=== PATIENT | male | born 1995 | race African-American/Black ===

== ENCOUNTER 2019-04-08 16:49 | Emergency (ER) | payer SELFPAY ==
[~2019-04-08] VITALS: Ht 180 cm; Wt 73.0 kg
[2019-04-08 17:37] LABS: BILIRUBIN,URINE NEGATIVE (NEGATIVE); CLARITY,URINE CLEAR; COLOR,URINE YELLOW; GLUCOSE, URINE (UA) NEGATIVE (NEGATIVE); KETONES,URINE NEGATIVE (NEGATIVE); LEUKOCYTE ESTERASE ,URINE NEGATIVE (NEGATIVE); NITRITE,URINE NEGATIVE (NEGATIVE); PH,URINE 8.5 (5-9); PROTEIN,URINE NEGATIVE (NEGATIVE)
[2019-04-08 17:45] LABS: RBC,URINE RARE /HPF; WBC,URINE RARE /HPF
[2019-04-08 17:46] LABS: BACTERIA,URINE NEGATIVE /HPF
--- NOTE | 2019-04-08 17:53 | ED GU-Male ---
General Chief Complaint: Abdominal/GI Problems Stated Complaint: PAIN IN ABD Nursing Triage Note: ABD PAIN, STARTED AT 1330 RATES 10/05 Source: patient Exam Limitations: no limitations History of Present Illness Date Seen by Provider: Apr 08, 2019 Time Seen by Provider: 17:40 Initial Comments Patient presents to ER by private conveyance with his family and chief complaint of right testicular pain radiating up into his right groin. Worse with movement. He noticed it first around 1:30 this afternoon when he got up for sleeping and did not do anything strenuous. He denies fevers, chills, nausea, vomiting or sweats. No history of STI. He said he had testing about a year ago that was negative. He is not having any discharge but he is having some painful urination. No history of kidney stones or abdominal surgeries. Allergies and Home Medications Allergies Coded Allergies: acetaminophen (Verified Allergy, Unknown, 04/08/19) Home Medications No Active Prescriptions or Reported Meds Patient Home Medication List Home Medication List Reviewed: Yes Review of Systems Review of Systems Constitutional: No chills, No fever, No malaise EENTM: No ear discharge, No ear pain Respiratory: No cough, No short of breath Cardiovascular: No chest pain, No edema Gastrointestinal: No abdominal pain, No constipation, No diarrhea, No nausea, No vomiting Genitourinary: burning; denies discharge; dysuria; denies frequency Musculoskeletal: No back pain, No gout, No joint pain Skin: No pruritus, No rash Psychiatric/Neurological: Denies Headache, Denies Numbness Past Gcubitl-Qkngrc-Echzto Hx Patient Social History Alcohol Use: Regular Use Number of Drinks Today: 0 Recreational Drug Use: Yes (POT) Smoking Status: Current Someday Smoker Type Used: Cigarettes Recent Foreign Travel: No Contact w/Someone Who Travel: No Recent Infectious Disease Expo: No Physical Exam Vital Signs Vital Signs - First Documented 04/08/19 04/08/19 16:58 18:51 Temp 36.9 Pulse 95 Resp 18 B/P (MAP) 104/67 (79) Pulse Ox 96 O2 Delivery Room Air Capillary Refill : Less Than 3 Seconds Height, Weight, BMI Height: '" Weight: lbs. oz. kg; 22.00 BMI Method: General Appearance: WD/WN, no apparent distress HEENT: PERRL/EOMI, pharynx normal Cardiovascular: normal peripheral pulses, regular rate, rhythm Respiratory: no respiratory distress, no accessory muscle use Gastrointestinal: normal bowel sounds, non tender, soft, no organomegaly Male: normal genitalia, inguinal tenderness (right side without contents palpab le in the canal on Valsalva maneuver. Negative for discharge from the urethra. No swelling or tumor palpable 1 test use.), testicular tenderness (right) Extremities: non-tender, normal inspection Neurologic/Psychiatric: alert, normal mood/affect, oriented x 3 Skin: normal color, warm/dry Progress/Results/Core Measures Suspected Sepsis Recent Fever Within 48 Hours: No Infection Criteria Present: None New/Unexplained Altered Menta: No Sepsis Screen: No Definite Risk SIRS Temperature: Pulse: 95 Respiratory Rate: 18 Laboratory Tests 04/08/19 17:35: White Blood Count 6.7 Blood Pressure 104 /67 Mean: 79 Laboratory Tests 04/08/19 17:35: Creatinine 1.03, Platelet Count 314, Total Bilirubin 0.8 Results/Orders Lab Results Laboratory Tests Test 04/08/19 17:25 04/08/19 17:35 Range/Units Urine Color YELLOW Urine Clarity CLEAR Urine pH 8.5 5-9 Urine Specific Davin 1.020 1.016-1.022 Urine Protein NEGATIVE NEGATIVE Urine Glucose (UA) NEGATIVE NEGATIVE Urine Ketones NEGATIVE NEGATIVE Urine Nitrite NEGATIVE NEGATIVE Urine Bilirubin NEGATIVE NEGATIVE Urine Urobilinogen 0.2 < = 1.0 MG/DL Urine Leukocyte Esterase NEGATIVE NEGATIVE Urine RBC (Auto) NEGATIVE NEGATIVE Urine RBC RARE /HPF Urine WBC RARE /HPF Urine Crystals NONE /LPF Urine Bacteria NEGATIVE /HPF Urine Casts NONE /LPF Urine Mucus NEGATIVE /LPF Urine Culture Indicated NO White Blood Count 6.7 4.3-11.0 10^3/uL Red Blood Count 4.96 4.35-5.85 10^6/uL Hemoglobin 14.7 13.3-17.7 G/DL Hematocrit 45 40-54 % Mean Corpuscular Volume 91 80-99 FL Mean Corpuscular Hemoglobin 30 25-34 PG Mean Corpuscular Hemoglobin Concent 33 32-36 G/DL Red Cell Distribution Width 13.2 10.0-14.5 % Platelet Count 314 130-400 10^3/uL Mean Platelet Volume 9.4 7.4-10.4 FL Neutrophils (%) (Auto) 73 42-75 % Lymphocytes (%) (Auto) 18 12-44 % Monocytes (%) (Auto) 8 0-12 % Eosinophils (%) (Auto) 1 0-10 % Basophils (%) (Auto) 0 0-10 % Neutrophils # (Auto) 4.9 1.8-7.8 X 10^3 Lymphocytes # (Auto) 1.2 1.0-4.0 X 10^3 Monocytes # (Auto) 0.5 0.0-1.0 X 10^3 Eosinophils # (Auto) 0.0 0.0-0.3 10^3/uL Basophils # (Auto) 0.0 0.0-0.1 10^3/uL Sodium Level 137 135-145 MMOL/L Potassium Level 3.6 3.6-5.0 MMOL/L Chloride Level 102 98-107 MMOL/L Carbon Dioxide Level 27 21-32 MMOL/L Anion Gap 8 5-14 MMOL/L Blood Urea Nitrogen 16 7-18 MG/DL Creatinine 1.03 0.60-1.30 MG/DL Estimat Glomerular Filtration Rate > 60 BUN/Creatinine Ratio 16 Glucose Level 100 70-105 MG/DL Calcium Level 9.9 8.5-10.1 MG/DL Corrected Calcium 8.5-10.1 MG/DL Total Bilirubin 0.8 0.1-1.0 MG/DL Aspartate Amino Transf (AST/SGOT) 23 5-34 U/L Alanine Aminotransferase (ALT/SGPT) 17 0-55 U/L Alkaline Phosphatase 56 40-136 U/L C-Reactive Protein High Sensitivity 0.03 0.00-0.50 MG/DL Total Protein 8.5 H 6.4-8.2 GM/DL Albumin 4.7 H 3.2-4.5 GM/DL My Orders Orders - WILIAM CERVANTES Ua Culture If Indicated (04/08/19 16:53) Cbc With Automated Diff (04/08/19 17:51) Comprehensive Metabolic Panel (04/08/19 17:51) Hs C Reactive Protein (04/08/19 17:51) Neis Musa Dna Urine Test (04/08/19 17:53) Chlamydia Trachomatis Urine (04/08/19 17:53) Azithromycin Tablet (Zithromax Tablet) (04/08/19 18:00) Ceftriaxone For Im Use (Rocephin For Im (04/08/19 18:00) Lidocaine 1% Inj 20 Ml (Xylocaine 1% Inj (04/08/19 18:00) Ketorolac Injection (Toradol Injection) (04/08/19 18:15) Ed Iv/Invasive Line Start (04/08/19 18:01) Ceftriaxone For Iv Use (Rocephin For I (04/08/19 18:30) Medications Given in ED Current Medications Medications Dose Ordered Sig/Naga Route Start Time Stop Time Status Last Admin Dose Admin Ceftriaxone Sodium 1000 mg/ Sterile Water 10 ml @ 200 mls/hr ONCE ONCE IV 04/08/19 18:30 04/08/19 18:32 DC 04/08/19 18:29 200 MLS/HR Vital Signs/I&O 04/08/19 04/08/19 16:58 18:51 Temp 36.9 36.9 Pulse 95 95 Resp 18 18 B/P (MAP) 104/67 (79) 104/67 (79) Pulse Ox 96 96 O2 Delivery Room Air Capillary Refill : Less Than 3 Seconds Blood Pressure Mean: 79 Progress Note : Time: 18:07 Progress Note Ultrasound is not available at this time. We will give him 250 mg Rocephin IM and azithromycin 1 g to treat perspective orchitis/epididymitis. We will arrange ER to ER transfer for ultrasound. [facility] has declined to take the patient has they are on MedSurg diversion and would not have a place to disposition the patient should he need to be admitted. Left a voicemail with Derek. [facility] does not have ultrasound available. 1830: Derek called back. Departure Impression Primary Impression: Testicular pain, right Disposition: XF [facility] (ER to ER) Condition: Stable Transfer Transfer Reason: Exceeds level of care (US unavailable in timely fasion) Time Spoke to Accepting Phy: 18:15 Transfer Progress Notes Derek ED: Dr. Gomez accept the patient for ER to ER transfer. Transfer Time: 18:30 Transfer Facility: [place], [place]. Method of Transfer: Private Vehicle Departure-Patient Inst. Referrals: NO,LOCAL PHYSICIAN (PCP) Primary Care Physician Scripts No Active Prescriptions or Reported Meds WILIAM CERVANTES Apr 08, 2019 17:53
[2019-04-08 17:59] LABS: BASOPHILS % (AUTO) 0 % (0-10); EOSINOPHILS % (AUTO) 1 % (0-10); HEMATOCRIT 45 % (40-54); HEMOGLOBIN 14.7 G/DL (13.3-17.7); LYMPHOCYTES # (AUTO) 1.2 X 10^3 (1.0-4.0); LYMPHOCYTES % (AUTO) 18 % (12-44); MEAN CORPUSCULAR HEMOGLOBIN 30 PG (25-34); MEAN CORPUSCULAR HGB CONC 33 G/DL (32-36); MEAN CORPUSCULAR VOLUME 91 FL (80-99); MEAN PLATELET VOLUME 9.4 FL (7.4-10.4); MONOCYTES # (AUTO) 0.5 X 10^3 (0.0-1.0); MONOCYTES % (AUTO) 8 % (0-12); NEUTROPHILS # (AUTO) 4.9 X 10^3 (1.8-7.8); NEUTROPHILS % (AUTO) 73 % (42-75); PLATELET COUNT 314 10^3/uL (130-400); RED CELL DISTRIBUTION WIDTH 13.2 % (10.0-14.5); WHITE BLOOD COUNT 6.7 10^3/uL (4.3-11.0)
[2019-04-08] MEDS ORDERED: cefTRIAXone 250 MG/ML vial (IM ONLY) IM ONE (18:00)
[2019-04-08] MEDS ORDERED: LIDOCAINE 1% INJ 20 ML 20 ML VIAL INJ ONE (18:00)
[2019-04-08] MEDS ORDERED: AZITHROMYCIN 250 MG TAB (ZITHROMAX) PO ONE (18:00)
[2019-04-08 18:12] LABS: ALANINE AMINOTRANSFERASE 17 U/L (0-55); ALBUMIN 4.7 GM/DL (3.2-4.5); ALKALINE PHOSPHATASE 56 U/L (40-136); BILIRUBIN,TOTAL 0.8 MG/DL (0.1-1.0); BUN/CREATININE RATIO 16; CALCIUM 9.9 MG/DL (8.5-10.1); CARBON DIOXIDE 27 MMOL/L (21-32); CHLORIDE 102 MMOL/L (98-107); CREATININE SERUM 1.03 MG/DL (0.60-1.30); GFR ESTIMATED > 60; GLUCOSE 100 MG/DL (70-105); POTASSIUM 3.6 MMOL/L (3.6-5.0); SODIUM 137 MMOL/L (135-145); TOTAL PROTEIN 8.5 GM/DL (6.4-8.2)
[2019-04-08] MEDS ORDERED: KETOROLAC 30 MG/ML VIAL IVP ONE (18:15)
[2019-04-08] MEDS ORDERED: cefTRIAXone FOR IV USE 1,000 MG in WATER (STERILE) FOR INJECTION 10 ML IV ONE (18:30)
[2019-04-08 18:51] VITALS: BP 104/67
--- OUTSIDE RECORDS SUMMARY | 2019-04-18 14:28 | XMS REPORT ---
Author Author Manan Terry [facility] o[facility] Address [address] [place], [place] [address] Care Team Providers Care Biomedical Photographer Name Role Phone Margaux Terry PCP Margaux Terry PreferredProvider Allergies and Adverse Reactions Name Reaction Notes Tylenol cranberries anaphylaxis Plan of Treatment Planned Activity Comments Planned Date Planned Time Plan/Goal CBC With Auto Differential 03/28/2017 12:00 AM CBC With Auto Differential 02/11/2018 12:00 AM CRP 02/11/2018 12:00 AM Medications Active Name Start Date Estimated Completion Date SIG Co mments lamotrigine 150 mg oral tablet 02/11/2018 t leatha 1 tablet by mouth daily x7, then 2 tablets daily x7, then 3 tablets daily x7, then 4 tablets daily Name Start Date Expiration Date SIG Comments Medrol (Taco) 4 mg oral tablets,dose pack 09/15/2014 take as directed Anusol-HC 25 mg rectal suppository insert 1 suppository (25 mg) by rectal route 2 times per day Suprep Bowel Prep Kit 17.5-3.13-1.6 gram oral recon soln 017 take as directed Discontinued Name Start Date Discontinued Date SIG Comments Medrol (Taco) 4 mg oral tablets,dose pack 08/06/2014 09/15/2014 take as directed tramadol oral 03/16/2016 EpiPen 2-Taco 0.3 mg/0.3 mL injection auto-injector 03/16/2016 03/27/2017 inject 0.3 milliliter (0.3 mg) by intramuscular route once as needed for anaphylaxis EpiPen 2-Taco 0.3 mg/0.3 mL injection auto-injector 03/16/2016 03/27/2017 inject 0.3 milliliter (0.3 mg) by intramuscular route once as needed for anaphylaxis naproxen 500 mg oral tablet,delayed release (DR/EC) 03/27/2017 take 1 tablet (500 mg) by oral route 2 times per day with food ferrous sulfate 325 mg (65 mg iron) oral tablet 03/27/2017 take 1 tablet (325 mg) by oral route once daily Lamictal 25 mg oral tablet 03/01/2017 03/27/2017 take 1 tablet by mouth daily x7 days, then 2 tablets daily x7 days, then 3 tablets daily x7 days then 4 tablets daily Problem List Description Status Onset Iron deficiency anemia Active 12/19/2016 Constipation Active 12/19/2016 Rectal bleeding Active 12/19/2016 Change in bowel habit Active 12/19/2016 Vital Signs Date Time BP-Sys(mm[Hg] BP-Melanie(mm[Hg]) HR(bpm) RR(rpm) Temp WT HT HC BMI BSA BMI Percentile O2 Sat(%) 02/11/2018 3:19:00 PM 122 mmHg 62 mmHg 87 bpm 18 rpm 99.3 F 145 lbs 71.5 i n 19.9413 kg/m 1.8215 m 98 % 03/27/2017 11:28:00 AM 128 mmHg 76 mmHg 60 bpm 20 rpm 98 F 147 lbs 71.5 in 20.22 kg/m2 1.83 m2 100 % 03/01/2017 10:57:00 AM 121 mmHg 71 mmHg 62 bpm 18 rpm 97.6 F 149 lbs 71.5 in 20.4914 kg/m 1.8465 m 100 % 12/19/2016 10:00:00 AM 117 mmHg 64 mmHg 64 bpm 18 rpm 97.8 F 146 lbs 71.5 in 20.08 kg/m2 1.83 m2 12/06/2016 9:27:00 AM 128 mmHg 68 mmHg 60 bpm 18 rpm 97.3 F 148 lbs 71 in 20.64 kg/m2 1.83 m2 98 % 07/10/2016 2:58:00 PM 110 mmHg 60 mmHg 83 bpm 16 rpm 97 F 148 lbs 71 in 20.6416 kg/m 1.8338 m 97 % 03/16/2016 2:08:00 PM 122 mmHg 60 mmHg 96 bpm 18 rpm 97.3 F 150 lbs 71 in 20.92 kg/m2 1.85 m2 99 % 01/13/2016 9:10:00 AM 124 mmHg 62 mmHg 60 bpm 18 rpm 96 F 143 lbs 71 in 19.9442 kg/m 1.8026 m 99 % 12/08/2014 2:38:00 PM 100 mmHg 50 mmHg 68 bpm 18 rpm 97.9 F 155 lbs 71 in 21.62 kg/m2 1.88 m2 96 % 09/15/2014 10:59:00 AM 64 bpm 18 rpm 97.9 F 155.6 lbs 71 in 21.7016 kg/m 1.8803 m 100 % 08/06/2014 1:24:00 PM 115 mmHg 58 mmHg 83 bpm 18 rpm 98.3 F 157.4 lbs 71 in 21.95 kg/m2 1.89 m2 98 % 09/08/2013 4:10:00 PM 100 mmHg 76 mmHg 73 bpm 18 rpm 99.3 F 162 lbs 71 in 22.5942 kg/m 1.9186 m 0 % 97 % Social History Name Description Comments Tobacco Light tobacco smoker Caffeine Light Alcohol Never History of Procedures Date Ordered Description Order Status 03/16/2016 12:00 AM ALLERGEN SPECIFIC IGE Reviewed 07/10/2016 12:00 AM Decadron 4mg Injection Reviewed 07/10/2016 12:00 AM Depo-Medrol 40mg Injection Reviewed 12/06/2016 12:00 AM COMPLETE CBC W/AUTO DIFF WBC Reviewed 12/06/2016 12:00 AM RADEX ABDOMEN COMPL W/DCBTS&/ERC VIEWS R eviewed 12/06/2016 12:00 AM C-REACTIVE PROTEIN Reviewed 12/06/2016 12:00 AM COMPREHEN METABOLIC PANEL Reviewed 09/08/2013 12:00 AM CHEST X-RAY 2VW FRONTAL&LATL Reviewed 09/08/2013 12:00 AM ELECTROCARDIOGRAM COMPLETE Reviewed 09/08/2013 12:00 AM ELECTROCARDIOGRAM TRACING Reviewed 09/08/2013 12:00 AM ELECTROCARDIOGRAM REPORT Reviewed 09/08/2013 12:00 AM BREATHING CAPACITY TEST Reviewed Results Summary Date and Description Results 12/13/2016 7:52 PM C REACTIVE PROTEIN <0.5 mg/L GLUCOSE 94.0 mg/dLSODIUM 140.0 mmol/LPOTASSIUM 3.80 mmol/LCHLORIDE 105.0 mmol/LCO2 26.0 mmol/LBUN 18.0 mg/dLCREATININE 0.90 mg/dLSGOT/AST 25.0 IU/LSGPT/ALT 11.0 IU/LALK PHOS 50.0 IU/LTOTAL PROTEIN 7.60 g/dLALBUMIN 4.20 g/dLTOTAL BILI 0.90 mg/dLCALCIUM 9.90 mg/dLAGE 21 GFR NonAA 105 GFR AA 127 eGFR >60 mL/min/1.73meGFR AA* >60 WBC 3.8 RBC 4.29 HGB 12.80 g/dLHCT 39.40 %MCV 92.0 fLMCH 29.80 pgMCHC 32.50 g/dLRDW SD 42 RDW CV 12.50 %MPV 8.70 fLPLT 256 NRBC# 0.00 NRBC% 0.0 %NEUT 24.0 %%LYMP 59.50 %%MONO 14.70 %%EOS 1.30 %%BASO 0.50 %#NEUT 0.90 #LYMP 2.23 #MONO 0.55 #EOS 0.05 #BASO 0.02 MANUAL DIFF NOT IND History Of Immunizations Not available. History of Past Illness Name Date of Onset Comments Iron deficiency anemia Anxiety Iron deficiency anemia 12/19/2016 Constipation 12/19/2016 Rectal bleeding 12/19/2016 Change in bowel habit 12/19/2016 Chest wall pain Sep 08 2013 4:12PM Wheezing Sep 08 2013 4:12PM Contact Dermatitis Aug 06 2014 1:26PM Contact Dermatitis Sep 15 2014 11:01AM Fatigue Dec 08 2014 2:40PM Encounter for occupational health examination Jan 13 2016 9 :12AM Allergic reaction, initial encounter Mar 16 2016 2:10PM Allergic rhinitis, unspecified allergic rhinitis trigger, unspecified rhinitis seasonality Jul 10 2016 2:59PM Left lower quadrant pain Dec 06 2016 9:29AM Rectal bleeding Dec 19 2016 12:02PM Iron deficiency anemia Dec 19 2016 12:02PM Rectal pain Dec 19 2016 12:02PM Change in bowel habit Dec 19 2016 12:02PM Constipation Dec 19 2016 12:02PM Iron deficiency anemia Jan 03 2017 9:05AM Mood disorder Mar 01 2017 10:59AM Mood disorder Mar 27 2017 11:30AM Other obsessive-compulsive disorders Mar 27 2017 11:30AM Leukopenia, unspecified type Mar 27 2017 11:30AM Bitten by dog, initial encounter Feb 11 2018 3:21PM Fever Feb 11 2018 3:21PM Mood disorder Feb 11 2018 3:21PM Anxiety Feb 11 2018 3:21PM Payers Insurance Name Company Name Plan Name Plan Number Policy Number Sin cy Group Number Start Date [facility] [id number] N/A [facility] Med Occupational Medicine [id number] N/A [id number] N/ A [employer] [id number] N/A History of Encounters Visit Date Visit Type Provider 02/11/2018 Office visit Margaux Terry LOOM FIXER HELPER 03/27/2017 Office visit Margaux Terry LOOM FIXER HELPER 03/01/2017 Office visit Margaux Terry APRN 12/25/2016 Surgery Alexey Crespo DO 12/19/2016 Office visit Alexey Crespo DO 12/06/2016 Office visit Margaux Terry APRN 10/27/2016 Hospital Cam Warner MD 07/10/2016 Office visit Keith Forbes APR N 03/16/2016 Office visit Margaux Terry APRN 01/13/2016 Office visit Margaux Terry APRN 12/08/2014 Office visit Skyler Meyers MD 09/15/2014 Office visit Afua NEVILLE RN 08/06/2014 Office visit Afua NEVILLE RN 09/08/2013 Hospital Cam Warner MD 09/08/2013 Office visit Afua NEVILLE RN
--- OUTSIDE RECORDS SUMMARY | 2019-04-18 14:28 | XMS REPORT | CCD ---
Author Author CARLOS CANSECO Organization Unknown Address [address] [place] [address] Care Team Providers Care Accounts Payable Clerk Name Role Phone VISH FARFAN, GLORIA Kenney Attphys Allergies Allergy Code Allergy Type Reaction Status ACETAMINOPHEN 161 Drug allergy Ac tive Active Medications Unknown or Not Available. Problems Unknown or Not Available. Procedures Procedure Code Procedure Type Date ^UA AUTO DIPSTICK ONLY 694034864 SNOMED CT 06/2016 ^CBC W/AUTO DIFF [id number] SNOMED CT 7 UA ROUTINE C&S IF IND [id number] SNOMED CT 06/2016 CBC W/ AUTO DIFF (RFLX MAN DIFF IF IND) [id number] SN OMED CT 11/30/2016 Results CBC W/ AUTO DIFF (RFLX MAN DIFF IF IND) - Collect Date/Time: 11/30/2016 11:15 Test Name Code Test Result Test Units Yoly t Ref Range WBC 14405-8 3.7 TH/CMM L=4.5 H=1 0.8 RBC 789-8 4.10 ML/CMM L=4.70 H=6. 10 HGB 718-7 12.3 G/DL L=14.0 H=18 .0 HCT 4544-3 36.7 % L=42.0 H=52 .0 MCV 90 FL L=81 H=99 MCH 30.0 PG L=27.0 H=33 .0 MCHC 33.5 G/DL L=31.0 H=36 .0 RDW SD 40 FL L=36 H=50 RDW CV 12.2 % L=0.0 H=14 .8 MPV 8.7 FL L=9.3 H=12 .5 PLT 777-3 245 TH/CMM L=130 H=44 0 NRBC# 0.00 TH/CMM L=0.00 H=0. 00 NRBC% 0.0 /100WBC L=0.0 H=2 .0 %NEUT 44.2 % %LYMP 44.6 % %MONO 10.3 % %EOS 0.3 % %BASO 0.3 % #NEUT 1.64 TH/CMM L=2.10 H=8. 20 #LYMP 1.65 TH/CMM L=0.90 H=5. 20 #MONO 0.38 TH/CMM L=0.16 H=1. 00 #EOS 0.01 TH/CMM L=0.00 H=0. 80 #BASO 0.01 TH/CMM L=0.00 H=0. 20 MANUAL DIFF NOT IND N/A UA ROUTINE C&S IF IND - Collect Date/Rachid e: 11/30/2016 11:15 Test Name Code Test Result Test Units Yoly t Ref Range COLOR YELLOW N/A NL: YELLOW APPEARANCE CLEAR N/A NL: CLEAR SPEC GRAV 1.010 N/A NL: 1.002 - 1.022 pH 8.5 N/A NL: 5 - 9 PROTEIN NEGATIVE N/A NL: NEGATIVE mg/dl GLUCOSE NEGATIVE N/A NL: NEGATIVE mg/dl KETONE 15 N/A NL: NEGATIVE m g/dl BILIRUBIN NEGATIVE N/A NL: NEGATI VE BLOOD NEGATIVE N/A NL: NEGATIVE NITRITE NEGATIVE N/A NL: NEGATIVE LEUK SCREEN NEGATIVE N/A NL: NEGA TIVE MICRO INDICATED? NOT INDICATED N/A Function Status Unknown or Not Available. History of Immunizations Immunization Code Date DTP 06/02/1997 OPV 06/02/1997 MMR 06/02/1997 Hep B, adolescent or pediatric 08 Hep B, adolescent or pediatric 08 Hep B, adolescent or pediatric 08 influenza, split (incl. purified surface antigen) 15 12/18/2007 Tdap 115 07/23/2007 Plan of Treatment Unknown or Not Available. Social History Smoking Status Code Start Date End Date Current some day smoker [id number] Vital Signs Unknown or Not Available. Function Status Unknown or Not Available. Goals Unknown or Not Available. ASSESSMENTS Unknown or Not Available. Health Concerns Section Unknown or Not Available.
--- OUTSIDE RECORDS SUMMARY | 2019-04-18 14:28 | XMS REPORT ---
Author Author Manan WYMAN [facility] Address [address] [place], [place] [address] Care Team Providers Care Tank Truck Driver Name Role Phone PIPER WYMAN PCP Margaux Terry PreferredProvider Allergies and Adverse [...] HC BMI BSA BMI Percentile O2 Sat(%) 08/26/2018 11:41:00 AM 122 mmHg 78 mmHg 82 bpm 18 rpm 98.2 F 148 lbs 71.5 in 20.3539 kg/m 1.8403 m 98 % 05/25/2018 9:08:00 AM 96 mmHg 70 mmHg 69 bpm 16 rpm 98.2 F 149.25 lbs 71.5 in 20.53 kg/m2 1.85 m2 97 % 02/11/2018 3:19:00 PM 122 mmHg 62 mmHg 87 bpm 18 rpm 99.3 F 145 lbs 71.5 i n 19.94 kg/m2 1.8215 m 98 % 03/27/2017 11:28:00 AM 128 mmHg 76 mmHg 60 bpm 20 rpm 98 F 147 lbs 71.5 in 20.2164 kg/m 1.83 m2 100 % 03/01/2017 10:57:00 AM 121 mmHg 71 mmHg 62 bpm 18 rpm 97.6 F 149 lbs 71.5 in 20.49 kg/m2 1.8465 m 100 % 12/19/2016 10:00:00 AM 117 mmHg 64 mmHg 64 bpm 18 rpm 97.8 F 146 lbs 71.5 in 20.0789 kg/m 1.83 m2 12/06/2016 9:27:00 AM 128 mmHg 68 mmHg 60 bpm 18 rpm 97.3 F 148 lbs 71 in 20.64 kg/m2 1.8338 m 98 % 07/10/2016 2:58:00 PM 110 mmHg 60 mmHg 83 bpm 16 rpm 97 F 148 lbs 71 in 20.6416 kg/m 1.83 m2 97 % 03/16/2016 2:08:00 PM 122 mmHg 60 mmHg 96 bpm 18 rpm 97.3 F 150 lbs 71 in 20.92 kg/m2 1.8462 m 99 % 01/13/2016 9:10:00 AM 124 mmHg 62 mmHg 60 bpm 18 rpm 96 F 143 lbs 71 in 19.9442 kg/m 1.80 m2 99 % 12/08/2014 2:38:00 PM 100 mmHg 50 mmHg 68 bpm 18 rpm 97.9 F 155 lbs 71 in 21.62 kg/m2 1.8767 m 96 % 09/15/2014 10:59:00 AM 64 bpm [...] 12/06/2016 12:00 AM COMPREHEN METABOLIC PANEL Reviewed 05/25/2018 9:49 AM URINALYSIS AUTO W/O SCOPE Reviewed 09/08/2013 12:00 AM CHEST X-RAY 2VW [...] 0.05 #BASO 0.02 MANUAL DIFF NOT IND 05/25/2018 9:49 AM Clarity Ur clear Urine-Color yellow Glucose Ur-sCnc neg Bilirub Ur Ql neg Ketones Ur Ql Strip neg Sp Gr Ur Qn 1.025 Hgb Ur Ql Strip neg pH Ur-LsCnc 6.0 Prot Ur Ql Strip neg Urobilinogen Ur-mCnc 0.2 Nitrite Ur Ql Strip neg WBC # Ur neg History Of Immunizations Not available. History of [...] 2018 3:21PM Anxiety Feb 11 2018 3:21PM Abdominal pain May 25 2018 9:10AM Vomiting May 25 2018 9:10AM History of constipation May 25 2018 9:10AM Exercise Counseling Aug 26 2018 11:42AM Sprain of joints and ligaments of unspecified parts of neck, sequela Aug 26 2018 11:42AM Muscle spasms of neck Aug 26 2018 11:42AM Payers Insurance Name Company Name Plan Name Plan Number Policy Number Sin cy Group Number Start Date [facility] [id number] N/A [facility] Med Occupational Medicine [id number] N/A [facility]BS [id number]/ A [id number] N/A [employer] Claim Number [id number] N/A History of Encounters Visit Date Visit Type Provider 08/26/2018 Office visit PIPER MALONEY 05/25/2018 Office visit Anastacia Aden APR N 02/11/2018 Office visit Margaux Terry CYLINDER FILLER 03/27/2017 Office visit Margaux Terry CYLINDER FILLER 03/01/2017 Office visit Margaux Terry CYLINDER FILLER 12/25/2016 Surgery Alexey Crespo DO 12/19/2016 Office visit Alexey Crespo DO 12/06/2016 Office visit Margaux Terry CYLINDER FILLER 10/27/2016 Hospital Cam Warner MD 07/10/2016 Office visit Keith Forbes APR N 03/16/2016 Office visit Margaux Terry CYLINDER FILLER 01/13/2016 Office visit Margaux Terry APRN 12/08/2014 Office visit Skyler Meyers MD 09/15/2014 Office visit Afua NEVILLE RN 08/06/2014 Office visit Afua NEVILLE RN 09/08/2013 [facility] Cam Warner MD 09/08/2013 Office visit Afua NEVILLE RN
--- OUTSIDE RECORDS SUMMARY | 2019-04-18 14:28 | XMS REPORT | CCD ---
Author Author CARLOS JANSEN Organization Unknown Address [address] [facility] [address] [place], [place] [id number] Care Team Providers Care Fibreglass Gun Hand Name Role Phone [facility] OZZY MCGRAW MD Attphys [facility] Pr[facility]urg Vital Signs Unknown. Allergies Allergy Code Allergy Type Reaction Status ACETAMINOPHEN 161 Drug allergy (disorder) Active Procedures Unknown. History of Immunizations Unknown. Problems Unknown. Results Unknown. Medications Unknown. Medications Administered Unknown. Encounters Encounter Diagnosis Diagnosis Code Start Date CONTUSION OF HANDS 54724 08/14/2013 Social History Smoking Status Code Start Date End Date Never smoker [id number] Patient Decision Aids Unknown. Discharge Instructions You were admitted to [facility] on 08/14/2013 with a principle diagnosis of CONTUSION OF HANDS. You were discharged from [facility] on 08/14/2013. Should you have any questions prior to discharge, please contact a member of your healthcare team. If you have left the hospital and have any questions, please contact your primary care physician. Chief Complaint and Reason For Visit Chief Complaint Date of Onset FINGER INJURY Function Status Unknown. Referral/Transition of Care Unknown.
--- OUTSIDE RECORDS SUMMARY | 2019-04-18 14:28 | XMS REPORT ---
Author Author Manan Terry [facility] Address [address] [place], [place] [address] Care Team Providers Care Emissions Repair Technician Name Role Phone Margaux Terry PCP Margaux [...] [facility] [id number] N/A [facility] Med Occupational Medicine [id number] N/A BCBS [id number] N/ A [employer] [id number] N/A History of Encounters Visit Date Visit Type Provider 02/11/2018 Office visit Margaux Terry BRIDGE TENDER 03/27/2017 Office visit Margaux Terry BRIDGE TENDER 03/01/2017 Office visit Margaux Terry APRN 12/25/2016 [...]
--- OUTSIDE RECORDS SUMMARY | 2019-04-18 14:28 | XMS REPORT ---
Author Author Manan Aden [facility] Address [address] [place], [place] [address] Care Team Providers Care Timber Management Assistant Name Role Phone Anastacia Aden PCP Margaux Terry PreferredProvider Allergies and Adverse [...] HC BMI BSA BMI Percentile O2 Sat(%) 05/25/2018 9:08:00 AM 96 mmHg 70 mmHg 69 bpm 16 rpm 98.2 F 149.25 lbs 71.5 in 20.5258 kg/m 1.848 m 97 % 02/11/2018 3:19:00 PM 122 mmHg 62 mmHg 87 bpm 18 rpm 99.3 F 145 lbs 71.5 i n 19.94 kg/m2 1.82 m2 98 % 03/27/2017 11:28:00 AM 128 mmHg 76 mmHg 60 bpm 20 rpm 98 F 147 lbs 71.5 in 20.2164 kg/m 1.8341 m 100 % 03/01/2017 10:57:00 AM 121 mmHg 71 mmHg 62 bpm 18 rpm 97.6 F 149 lbs 71.5 in 20.49 kg/m2 1.85 m2 100 % 12/19/2016 10:00:00 AM 117 mmHg 64 mmHg 64 bpm 18 rpm 97.8 F 146 lbs 71.5 in 20.0789 kg/m 1.8278 m 12/06/2016 9:27:00 AM 128 mmHg 68 mmHg [...] History of constipation May 25 2018 9:10AM Payers Insurance Name Company Name Plan Name Plan Number Policy Number Sin cy Group Number Start Date [facility] [id number] N/A [facility] Med Occupational Medicine [id number] N/A [id number] N/ A [place] [id number] N/A History of Encounters Visit Date Visit Type Provider 05/25/2018 Office visit Anastacia Aden APR N 02/11/2018 Office visit Margaux Terry PRACTICE BUSINESS ASST 03/27/2017 Office visit Margaux Terry PRACTICE BUSINESS ASST 03/01/2017 Office visit Margaux Terry PRACTICE BUSINESS ASST 12/25/2016 Surgery Alexey Crespo DO 12/19/2016 Office visit Alexey Crespo DO 12/06/2016 Office visit Margaux Terry PRACTICE BUSINESS ASST 10/27/2016 Hospital Cam Warner MD 07/10/2016 Office visit Keith Forbes APR N 03/16/2016 Office visit Margaux Terry PRACTICE BUSINESS ASST 01/13/2016 Office visit Margaux Terry PRACTICE BUSINESS ASST 12/08/2014 Office visit Skyler Meyers MD 09/15/2014 Office visit Afua NEVILLE RN 08/06/2014 Office visit Afua NEVILLE RN 09/08/2013 Hospital Cam Warner MD 09/08/2013 Office visit Afua NEVILLE RN
--- OUTSIDE RECORDS SUMMARY | 2019-04-18 14:28 | XMS REPORT | CCD ---
Author Author CARLOS SANCHES Organization Unknown Address [address] [facility] [address] [place] [address] Care Team Providers Care Irish Moss Bleacher Name Role Phone THELMA GUTIÉRREZ MD Attphys THELMA GUTIÉRREZ MD Prisurg Allergies Allergy Code Allergy Type Reaction Status ACETAMINOPHEN 161 Drug allergy Ac tive Active Medications Unknown or Not Available. Problems Unknown or Not Available. Procedures Procedure Code Procedure Type Date HAND;MINIMUM 3VWS [id number] SNOMED CT 12/24/19 16 Results Unknown or Not Available. Function Status Unknown or Not Available. History of Immunizations Immunization Code Date DTP 06/02/1997 OPV 02 06/02/1997 MMR 03 06/02/1997 Hep B, adolescent or pediatric 08 Hep B, adolescent or pediatric Hep B, adolescent or pediatric influenza, split (incl. purified surface antigen) 15 12/18/2007 Tdap 115 07/23/2007 Plan of Treatment Unknown or Not Available. Social History Smoking Status Code Start Date End Date Never smoker [id number] Vital Signs Unknown or Not Available. Function Status Unknown or Not Available. Goals Unknown or Not Available. ASSESSMENTS Unknown or Not Available. Health Concerns Section Unknown or Not Available.
--- OUTSIDE RECORDS SUMMARY | 2019-04-18 14:28 | XMS REPORT ---
Author Author Manan Aden [facility] Address [address] [place], [place] [address] Care Team Providers Care Cosmetic Account Coordinator Name Role Phone Anastacia Aden PCP Margaux [...] Number Start Date [facility] [id number] N/A [facility] Med Occupational Medicine [id number] N/A BCBS [id number] N/ A [employer] [id number] N/A History of Encounters Visit Date Visit Type Provider 05/25/2018 Office visit Anastacia Laine Aden APR N 02/11/2018 Office visit Margaux Terry BUSINESS SYSTEMS ARCHITECT 03/27/2017 Office visit Margaux Terry BUSINESS SYSTEMS ARCHITECT 03/01/2017 Office visit Margaux Terry BUSINESS SYSTEMS ARCHITECT 12/25/2016 Surgery Alexey Crespo DO 12/19/2016 Office visit Alexey Crespo DO 12/06/2016 Office visit Margaux Terry BUSINESS SYSTEMS ARCHITECT 10/27/2016 Hospital Cam Warner MD 07/10/2016 Office visit Keith Forbes APR N 03/16/2016 Office visit Margaux Terry BUSINESS SYSTEMS ARCHITECT 01/13/2016 Office visit Margaux Terry BUSINESS SYSTEMS ARCHITECT 12/08/2014 Office visit Skyler Meyers MD 09/15/2014 Office visit Afua NEVILLE RN 08/06/2014 Office visit Afua NEVILLE RN 09/08/2013 Hospital Cam Warner MD 09/08/2013 Office visit Afua NEVILLE RN
--- OUTSIDE RECORDS SUMMARY | 2019-04-18 14:29 | XMS REPORT ---
Author Manan Alfonso [facility] Address [address] [place], [place] [address] Care Team Providers Care Vascular Technologist Sonographer Name Role Phone Margaux Terry PCP Unavailable Allergies and Adverse Reactions Name Reaction Notes Tylenol cranberries Plan of Treatment Not available. Medications Active Name Start Date Estimated Completion Date SIG Co mments EpiPen 2-Taco 0.3 mg/0.3 mL injection auto-injector 03/16/2016 inject 0.3 milliliter (0.3 mg) by intramuscular route once as needed for anaphylaxis EpiPen 2-Taco 0.3 mg/0.3 mL injection auto-injector 03/16/2016 inject 0.3 milliliter (0.3 mg) by intramuscular route once as needed for anaphylaxis Name Start Date Expiration Date SIG Comments Medrol (Taco) 4 mg oral tablets,dose pack 09/15/2014 take as directed Discontinued Name Start Date Discontinued Date SIG Comments Medrol (Taco) 4 mg oral tablets,dose pack 08/06/2014 09/15/2014 take as directed tramadol oral 03/16/2016 Problem List Description Status Onset *No known medical problems Active Vital Signs Date Time BP-Sys(mm[Hg] BP-Melanie(mm[Hg]) HR(bpm) RR(rpm) Temp WT HT HC BMI BSA BMI Percentile O2 Sat(%) 12/06/2016 9:27:00 AM 128 mmHg 68 mmHg [...] 12:00 AM COMPLETE CBC W/AUTO DIFF WBC Returned 12/06/2016 12:00 AM RADEX ABDOMEN COMPL W/DCBTS&/ERC VIEWS R eturned 12/06/2016 12:00 AM C-REACTIVE PROTEIN Returned 12/06/2016 12:00 AM COMPREHEN METABOLIC PANEL Returned 09/08/2013 12:00 AM CHEST X-RAY 2VW FRONTAL&LATL Reviewed 09/08/2013 12:00 AM ELECTROCARDIOGRAM COMPLETE Reviewed 09/08/2013 12:00 AM ELECTROCARDIOGRAM TRACING Reviewed 09/08/2013 12:00 AM ELECTROCARDIOGRAM REPORT Reviewed 09/08/2013 12:00 AM BREATHING CAPACITY TEST Reviewed Results Summary Not available. History Of Immunizations Not available. History of Past Illness Name Date of Onset Comments *No known medical problems Chest wall pain Sep 08 2013 4:12PM [...] lower quadrant pain Dec 06 2016 9:29AM Payers Insurance Name Company Name Plan Name Plan Number Policy Number Sin cy Group Number Start Date [place] [employer] [place] [employer] [id number] N/A [facility] [id number] N/A Occ Med Occupational Medicine [id number] N/A [id number]/ A History of Encounters Visit Date Visit Type Provider 12/06/2016 Office visit Margaux Terry APRN 07/10/2016 Office visit Keith Forbes APR N 03/16/2016 Office visit Margaux Terry APRN 01/13/2016 Office visit Margaux Terry APRN 12/08/2014 Office visit Skyler Meyers MD 09/15/2014 Office visit Afua NEVILLE RN 08/06/2014 Office visit Afua NEVILLE RN 09/08/2013 [facility] Cam Warner MD 09/08/2013 Office visit Afua NEVILLE RN
--- OUTSIDE RECORDS SUMMARY | 2019-04-18 14:29 | XMS REPORT ---
Author Author [facility] Organization [facility] Address [address] [place], [place] [address] Care Team Providers Care Scallop Binder Name Role Phone PCP Unavailable Allergies and Adverse Reactions Name Reaction Notes Tylenol Plan of Treatment Not available. Medications Active Name Start Date Estimated Completion Date SIG Co mments Medrol (Taco) oral tablets,dose pack 4 mg 08/06/2014 take as directed Problem List Description Status Onset *No known medical problems Active Vital Signs Date Time BP-Sys(mm[Hg] BP-Melanie(mm[Hg]) HR(bpm) RR(rpm) Temp WT HT HC BMI BSA BMI Percentile O2 Sat(%) 08/06/2014 1:24:00 PM 115 mmHg 58 mmHg 83 bpm 18 rpm 98.3 F 157.4 lbs 71 in 21.95 kg/m2 1.89 m2 98 % 09/08/2013 4:10:00 PM 100 mmHg 76 mmHg 73 bpm 18 rpm 99.3 F 162 lbs 71 in 22.5942 kg/m 1.9186 m 0 % 97 % Social History Name Description Comments Tobacco Light tobacco smoker Caffeine Alcohol History of Procedures Date Ordered Description Order Status 09/08/2013 12:00 AM CHEST X-RAY 2VW FRONTAL&LATL Returned 09/08/2013 12:00 AM ELECTROCARDIOGRAM COMPLETE Returned 09/08/2013 12:00 AM ELECTROCARDIOGRAM TRACING Returned 09/08/2013 12:00 AM ELECTROCARDIOGRAM REPORT Returned Results Summary Not available. History Of Immunizations Not available. History of Past Illness Name Date of Onset Comments *No known medical problems Chest wall pain Sep 08 2013 4:12PM Wheezing Sep 08 2013 4:12PM Contact Dermatitis Aug 06 2014 1:26PM Payers Insurance Name Company Name Plan Name Plan Number Policy Number Sin cy Group Number Start Date [facility] [id number] N/A History of Encounters Visit Date Visit Type Provider 08/06/2014 Office visit Afua NEVILLE RN 09/08/2013 Office visit Afua NEVILLE RN 09/08/2013 [facility] Cam Warner MD
--- OUTSIDE RECORDS SUMMARY | 2019-04-18 14:29 | XMS REPORT ---
Author Author Manan Terry Organization [facility] Address [address] [place], [place] [address] Care Team Providers Care Drug Enforcement Administration Agent Name Role Phone Margaux Terry PCP Unavailable Allergies and Adverse Reactions Name Reaction Notes Tylenol cranberries Plan of Treatment Planned Activity Comments Planned Date Planned Time Plan/Goal CBC With Auto Differential 12/06/2016 12:00 AM CRP 12/06/2016 12:00 AM CMP 12/06/2016 12:00 AM Medications Active Name Start Date [...] Depo-Medrol 40mg Injection Reviewed 12/06/2016 12:00 AM RADEX ABDOMEN COMPL W/DCBTS&/ERC VIEWS R eturned 09/08/2013 12:00 AM CHEST X-RAY 2VW FRONTAL&LATL [...] Number Sin cy Group Number Start Date [place] [employer] [place] [employer] [id number] N/A [facility] [id number] N/A Occ Med Occupational Medicine [id number] N/A [id number]/ A History of Encounters Visit Date Visit Type Provider 12/06/2016 Office visit Margaux Terry WATCH INSPECTOR FINAL MOVEMENT 07/10/2016 Office visit Keith Forbes APR N 03/16/2016 Office visit Margaux Terry APRN 01/13/2016 Office visit Margaux Terry APRN 12/08/2014 Office visit Skyler Meyers MD 09/15/2014 Office visit Afua NEVILLE RN 08/06/2014 Office visit Afua NEVILLE RN 09/08/2013 [facility] Cam Warner MD 09/08/2013 Office visit Afua NEVILLE RN
--- OUTSIDE RECORDS SUMMARY | 2019-04-18 14:29 | XMS REPORT ---
Author Author Manan Crespo [facility] Address [address] [place], [place] [address] Care Team Providers Care Forest Management Teacher Name Role Phone lAexey Crespo PCP Unavailable Allergies and Adverse Reactions Name Reaction Notes Tylenol cranberries anaphylaxis Plan of Treatment Not available. Medications Active [...] naproxen 500 mg oral tablet,delayed release (DR/EC) take 1 tablet (500 mg) by oral route 2 times per day with food ferrous sulfate 325 mg (65 mg iron) oral tablet take 1 tablet (325 mg) by oral route once daily Suprep Bowel Prep Kit 17.5-3.13-1.6 gram oral recon soln 017 take as directed Name Start Date Expiration Date SIG Comments Medrol (Taco) 4 mg oral tablets,dose pack 09/15/2014 take as directed Anusol-HC 25 mg rectal suppository insert 1 suppository (25 mg) by rectal route 2 times per day Discontinued Name Start Date Discontinued Date SIG Comments Medrol (Taco) 4 mg oral tablets,dose pack 08/06/2014 09/15/2014 take as directed tramadol oral 03/16/2016 Problem List Description Status Onset Iron deficiency anemia Active 12/19/2016 Constipation Active 12/19/2016 Rectal bleeding Active 12/19/2016 Change in bowel habit Active 12/19/2016 Vital Signs Date Time BP-Sys(mm[Hg] BP-Melanie(mm[Hg]) HR(bpm) RR(rpm) Temp WT HT HC BMI BSA BMI Percentile O2 Sat(%) 12/19/2016 10:00:00 AM 117 mmHg 64 mmHg 64 bpm 18 rpm 97.8 F 146 lbs 71.5 in 20.08 kg/m2 1.83 m2 12/06/2016 9:27:00 AM 128 mmHg 68 mmHg 60 bpm 18 rpm 97.3 F 148 lbs 71 in 20.6416 kg/m 1.8338 m 98 % 07/10/2016 2:58:00 PM 110 mmHg 60 mmHg 83 bpm 16 rpm 97 F 148 lbs 71 in 20.64 kg/m2 1.83 m2 97 % 03/16/2016 2:08:00 PM 122 mmHg 60 mmHg 96 bpm 18 rpm 97.3 F 150 lbs 71 in 20.9205 kg/m 1.8462 m 99 % 01/13/2016 9:10:00 AM 124 mmHg 62 mmHg 60 bpm 18 rpm 96 F 143 lbs 71 in 19.94 kg/m2 1.80 m2 99 % 12/08/2014 2:38:00 PM 100 mmHg 50 mmHg 68 bpm 18 rpm 97.9 F 155 lbs 71 in 21.6179 kg/m 1.8767 m 96 % 09/15/2014 10:59:00 AM 64 bpm 18 rpm 97.9 F 155.6 lbs 71 in 21.70 kg/m2 1.88 m2 100 % 08/06/2014 1:24:00 PM 115 mmHg 58 mmHg 83 bpm 18 rpm 98.3 F 157.4 lbs 71 in 21.9526 kg/m 1.8912 m 98 % 09/08/2013 4:10:00 PM 100 mmHg 76 mmHg 73 bpm 18 rpm 99.3 F 162 lbs 71 in 22.59 kg/m2 1.92 m2 0 % 97 % Social History Name [...] 2016 12:02PM Constipation Dec 19 2016 12:02PM Payers Insurance Name Company Name Plan Name Plan Number Policy Number Sin cy Group Number Start Date [place] [employer] [place] [employer] [id number] N/A [facility] [id number] N/A [facility] Med Occupational Medicine [id number] N/A BCBS [id number] N/ A History of Encounters Visit Date Visit Type Provider 12/19/2016 Office visit Alexey Crespo DO 12/06/2016 Office visit Margaux Terry CONSTRUCTION IRONWORKER HELPER 07/10/2016 Office visit Keith Forbes APR N 03/16/2016 Office visit Margaux Terry CONSTRUCTION IRONWORKER HELPER 01/13/2016 Office visit Margaux Terry CONSTRUCTION IRONWORKER HELPER 12/08/2014 Office visit Skyler Meyers MD 09/15/2014 Office visit Afua NEVILLE RN 08/06/2014 Office visit Afua NEVILLE RN 09/08/2013 [facility] Cam Warner MD 09/08/2013 Office visit Afua NEVILLE RN
--- OUTSIDE RECORDS SUMMARY | 2019-04-18 14:29 | XMS REPORT ---
Author Author Manan Forbes [facility] Address [address] [place] [id number] Care Team Providers Care Barking Machine Feeder Name Role Phone Keith Forbes PCP Allergies and Adverse Reactions Name Reaction Notes [...] HC BMI BSA BMI Percentile O2 Sat(%) 07/10/2016 2:58:00 PM 110 mmHg 60 mmHg [...] 03/16/2016 12:00 AM ALLERGEN SPECIFIC IGE Reviewed 09/08/2013 12:00 AM CHEST X-RAY 2VW [...] unspecified rhinitis seasonality Jul 10 2016 2:59PM Payers Insurance Name Company Name Plan Name Plan Number Policy Number Sin cy Group Number Start Date [place] [employer] [id number] N/A [facility] [id number] N/A [facility] Med Occupational Medicine [id number] N/A [id number]/ A History of Encounters Visit Date Visit Type Provider 07/10/2016 Office visit Keith Forbes APR N 03/16/2016 Office visit Margaux Terry TRAUMA DIRECTOR 01/13/2016 Office visit Margaux Terry APRN 12/08/2014 Office visit Skyler Meyers MD 09/15/2014 Office visit Afua NEVILLE RN 08/06/2014 Office visit Afua NEVILLE RN 09/08/2013 [facility] Cam Warner MD 09/08/2013 Office visit Afua NEVILLE RN
--- OUTSIDE RECORDS SUMMARY | 2019-04-18 14:29 | XMS REPORT ---
Author Author Manan Terry Organization [facility] Address [address] [place], [place] [address] Care Team Providers Care Flight Manager Name Role Phone Margaux Terry PCP Margaux Terry PreferredProvider Allergies and Adverse Reactions Name Reaction Notes Tylenol cranberries anaphylaxis Plan of Treatment Planned Activity Comments Planned Date Planned Time Plan/Goal CBC With Auto Differential 03/28/2017 12:00 AM Medications Active Name Start Date Estimated Completion Date SIG Co mments lamotrigine 100 mg oral tablet 03/27/2017 t leatha 1 tablet daily x1 week then 1.5 tablets daily Name Start Date Expiration Date [...] HC BMI BSA BMI Percentile O2 Sat(%) 03/27/2017 11:28:00 AM 128 mmHg 76 mmHg [...] 12.80 g/dLHCT 39.40 %MCV 92.0 fLMCH 29.80 pgHC 32.50 g/dLRDW SD 42 RDW CV 12.50 [...] Leukopenia, unspecified type Mar 27 2017 11:30AM Payers Insurance Name Company Name Plan Name Plan Number Policy Number Sin cy Group Number Start Date [place] [employer] [place] [id number] N/A [facility] [id number] N/A [facility] Med Occupational Medicine [id number] N/A BCBS [id number] N/ A History of Encounters Visit Date Visit Type Provider 03/27/2017 Office visit Margaux Terry PRESALES ENGINEER 03/01/2017 Office visit Margaux Terry PRESALES ENGINEER 12/25/2016 Surgery Alexey Crespo DO 12/19/2016 Office visit Alexey Crespo DO 12/06/2016 Office visit Margaux Terry PRESALES ENGINEER 10/27/2016 Hospital Cam Warner MD 07/10/2016 Office visit Keith Forbes APR N 03/16/2016 Office visit Margaux Terry PRESALES ENGINEER 01/13/2016 Office visit Margaux Terry PRESALES ENGINEER 12/08/2014 Office visit Skyler Meyers MD 09/15/2014 Office visit Afua NEVILLE RN 08/06/2014 Office visit Afua NEVILLE RN 09/08/2013 [facility] Cam Warner MD 09/08/2013 Office visit Afua NEVILLE RN
--- OUTSIDE RECORDS SUMMARY | 2019-04-18 14:29 | XMS REPORT ---
Author Author Manan Terry Organization [facility] Address [address] [place], [place] [address] Care Team Providers Care Lumber Press Operator Name Role Phone Margaux Terry PCP Margaux [...] Number Sin cy Group Number Start Date [place] [employer] [employer] [id number] N/A [facility] [id number] N/A [facility] Med Occupational Medicine [id number] N/A BCBS [id number] N/ A History of Encounters Visit Date Visit Type Provider 03/27/2017 Office visit Margaux Terry TOOL SPECIALIST 03/01/2017 Office visit Margaux Terry TOOL SPECIALIST 12/25/2016 Surgery Alexey Crespo DO 12/19/2016 Office visit Alexey Crespo DO 12/06/2016 Office visit Margaux Terry TOOL SPECIALIST 10/27/2016 Hospital Cam Warner MD 07/10/2016 Office visit Keith Forbes APR N 03/16/2016 Office visit Margaux Terry TOOL SPECIALIST 01/13/2016 Office visit Margaux Terry TOOL SPECIALIST 12/08/2014 Office visit Skyler Meyers MD 09/15/2014 Office visit Afua NEVILLE RN 08/06/2014 Office visit Afua NEVILLE RN 09/08/2013 [facility] Cam Warner MD 09/08/2013 Office visit Afua NEVILLE RN
--- OUTSIDE RECORDS SUMMARY | 2019-04-18 14:29 | XMS REPORT ---
Author Author Manan Terry Organization [facility] Address [address] [place], [place] [address] Care Team Providers Care Lunchroom Mother Name Role Phone Margaux Terry PCP Unavailable [...] Number Sin cy Group Number Start Date [place] [employer] [place] [employer] [id number] N/A [facility] [id number] N/A Occ Med Occupational Medicine [id number] N/A BCBS [id number] N/ A History of Encounters Visit Date Visit Type Provider 12/06/2016 Office visit Margaux Terry JUSTICE PROFESSOR 07/10/2016 Office visit Keith Forbes APR N 03/16/2016 Office visit Margaux Terry APRN 01/13/2016 Office visit Margaux Terry APRN 12/08/2014 Office visit Skyler Meyers MD 09/15/2014 Office visit Afua NEVILLE RN 08/06/2014 Office visit Afua NEVILLE RN 09/08/2013 [facility] Cam Warner MD 09/08/2013 Office visit Afua NEVILLE RN
--- OUTSIDE RECORDS SUMMARY | 2019-04-18 14:29 | XMS REPORT ---
Author Author Manan Meyers [facility] Address [address] [place], [place] [address] Care Team Providers Care [employer] Principal Name Role Phone Skyler Meyers PCP Unavailable Allergies and Adverse Reactions Name Reaction Notes Tylenol Plan of Treatment Planned Activity Comments Planned Date Planned Time Plan/Goal BREATHING CAPACITY TEST 09/08/2013 12:00 AM Medications Name Start Date Expiration Date SIG Comments Medrol (Taco) 4 mg oral tablets,dose pack 09/15/2014 take as directed Discontinued Name Start Date Discontinued Date SIG Comments Medrol (Taco) 4 mg oral tablets,dose pack 08/06/2014 09/15/2014 take as directed Problem List Description Status Onset *No known medical problems Active Vital Signs Date Time BP-Sys(mm[Hg] BP-Melanie(mm[Hg]) HR(bpm) RR(rpm) Temp WT HT HC BMI BSA BMI Percentile O2 Sat(%) 12/08/2014 2:38:00 PM 100 mmHg 50 mmHg [...] 2014 11:01AM Fatigue Dec 08 2014 2:40PM Payers Insurance Name Company Name Plan Name Plan Number Policy Number Sin cy Group Number Start Date [facility] [id number] N/A History of Encounters Visit Date Visit Type Provider 12/08/2014 Office visit Skyler Meyers MD 09/15/2014 Office visit Afua NEVILLE RN 08/06/2014 Office visit Afua NEVILLE RN 09/08/2013 [facility] Cam Warner MD 09/08/2013 Office visit Afua NEVILLE RN
--- OUTSIDE RECORDS SUMMARY | 2019-04-18 14:29 | XMS REPORT ---
Author Author Manan Terry [facility] Address [address] [place], [place] [address] Care Team Providers Care Melter Supervisor Oxygen Furnace Name Role Phone Margaux Terry PCP Margaux [...] daily Lamictal 25 mg oral tablet 03/01/2017 take 1 tablet by mouth daily x7 days, then 2 tablets daily x7 days, then 3 tablets daily x7 days then 4 tablets daily Name Start Date [...] HC BMI BSA BMI Percentile O2 Sat(%) 03/01/2017 10:57:00 AM 121 mmHg 71 mmHg [...] 9:05AM Mood disorder Mar 01 2017 10:59AM Payers Insurance Name Company Name Plan Name Plan Number Policy Number Sin cy Group Number Start Date [place] [employer] [place] [employer] [id number] N/A [facility] [id number] N/A [facility] Med Occupational Medicine [id number] N/A BCBS [id number] N/ A History of Encounters Visit Date Visit Type Provider 03/01/2017 Office visit Margaux Terry DRY CELL SEALER 12/25/2016 Surgery Alexey Crespo DO 12/19/2016 Office visit Aleexy Crespo DO 12/06/2016 Office visit Margaux Terry DRY CELL SEALER 10/27/2016 Hospital Cam Warner MD 07/10/2016 Office visit Keith Forbes APR N 03/16/2016 Office visit Margaux Terry DRY CELL SEALER 01/13/2016 Office visit Margaux Terry DRY CELL SEALER 12/08/2014 Office visit Skyler Meyers MD 09/15/2014 Office visit Afua NEVILLE RN 08/06/2014 Office visit Afua NEVILLE RN 09/08/2013 [facility] Cam Warner MD 09/08/2013 Office visit Afua NEVILLE RN
--- OUTSIDE RECORDS SUMMARY | 2019-04-18 14:30 | XMS REPORT ---
Author Author Manan Crespo [facility] Address [address] [place], [place] [address] Care Team Providers Care Supervisor Liquid Yeast Name Role Phone Alexey Crespo PCP Unavailable Allergies and Adverse Reactions [...] Number Sin cy Group Number Start Date [place] [employer] [id number] N/A [facility] [id number] N/A [facility] Med Occupational Medicine [id number] N/A BCBS [id number] N/ A History of Encounters Visit Date Visit Type Provider 12/19/2016 Office visit Alexey Crespo DO 12/06/2016 Office visit Margaux Terry FLAT FOLDING MACHINE OPERATOR 07/10/2016 Office visit Keith Forbes APR N 03/16/2016 Office visit Margaux Terry FLAT FOLDING MACHINE OPERATOR 01/13/2016 Office visit Margaux Terry FLAT FOLDING MACHINE OPERATOR 12/08/2014 Office visit Skyler Meyers MD 09/15/2014 Office visit Afua NEVILLE RN 08/06/2014 Office visit Afua NEVILLE RN 09/08/2013 [facility] Cam Warner MD 09/08/2013 Office visit Afua NEVILLE RN
--- OUTSIDE RECORDS SUMMARY | 2019-04-18 14:30 | XMS REPORT ---
Author Author Manan Terry Organization [facility] Address [address] [place], [place] [address] Care Team Providers Care Regulatory Compliance Director Name Role Phone Margaux Terry PCP Unavailable Allergies and Adverse Reactions Name Reaction Notes Tylenol Plan of Treatment Planned Activity Comments Planned Date Planned Time Plan/Goal PFT 09/08/2013 12:00 AM Medications Active Name Start Date Estimated Completion Date SIG Co mments tramadol oral Name Start Date Expiration Date SIG Comments [...] HC BMI BSA BMI Percentile O2 Sat(%) 01/13/2016 9:10:00 AM 124 mmHg 62 mmHg [...] health examination Jan 13 2016 9 :12AM Payers Insurance Name Company Name Plan Name Plan Number Policy Number Sin cy Group Number Start Date [facility] Med Occupational Medicine [id number] N/A [facility] [id number] N/A History of Encounters Visit Date Visit Type Provider 01/13/2016 Office visit Margaux Terry APRN 12/08/2014 Office visit Skyler Meyers MD 09/15/2014 Office visit Afua NEVILLE RN 08/06/2014 Office visit Afua NEVILLE RN 09/08/2013 [facility] Cam Warner MD 09/08/2013 Office visit Afua NEVILLE RN
--- OUTSIDE RECORDS SUMMARY | 2019-04-18 14:30 | XMS REPORT ---
Author Author Manan Terry [facility] Address [address] [place] [id number] Care Team Providers Care Sewage Disposal Engineer Name Role Phone Margaux Terry PCP Allergies and Adverse Reactions Name Reaction [...] Number Sin cy Group Number Start Date [employer] [facility] [employer] [id number] [facility] [id number] N/A Occ Med Occupational Medicine [id number] N/A [id number] History of Encounters Visit Date Visit Type Provider 03/01/2017 Office visit Margaux Terry TUFTING MACHINE FIXER 12/25/2016 Surgery Alexey Crespo DO 12/19/2016 Office visit Alexey Crespo DO 12/06/2016 Office visit Margaux Terry TUFTING MACHINE FIXER 10/27/2016 Hospital Cam Warner MD 07/10/2016 Office visit Keith Forbes APR N 03/16/2016 Office visit Margaux Terry TUFTING MACHINE FIXER 01/13/2016 Office visit Margaux Terry TUFTING MACHINE FIXER 12/08/2014 Office visit Skyler Meyers MD 09/15/2014 Office visit Afua NEVILLE RN 08/06/2014 Office visit Afua NEVILLE RN 09/08/2013 [facility] Cam Warner MD 09/08/2013 Office visit Afua NEVILLE RN
--- OUTSIDE RECORDS SUMMARY | 2019-04-18 14:30 | XMS REPORT | CCD ---
Author Author CARLOS JANSEN Organization Unknown Address [address] [facility] [address] [place], [place] [phone] Care Team Providers Care Selling Specialist Name Role Phone BRIANDAOZZY TADEO MD [facility]phys [facility] Pr[facility]urg Vital Signs Unknown. Allergies Allergy Code Allergy Type Reaction Status ACETAMINOPHEN 161 Drug allergy (disorder) Active Procedures Unknown. History of Immunizations Unknown. Problems Unknown. Results Unknown. Medications Unknown. Medications Administered Unknown. Encounters Encounter Diagnosis Diagnosis Code Start Date TIETZE'S DISEASE 7336 09/04/2013 Social History Smoking Status Code Start Date End Date Never smoker [id number] Patient Decision Aids Unknown. Discharge Instructions You were admitted to [facility] on 09/04/2013 with a principle diagnosis of TIETZE'S DISEASE. You were discharged from [facility] on 09/04/2013. Should you have any questions prior to discharge, please contact a member of your healthcare team. If you have left the hospital and have any questions, please contact your primary care physician. Chief Complaint and Reason For Visit Chief Complaint Date of Onset CHEST PAIN Function Status Unknown. Referral/Transition of Care Unknown.
--- OUTSIDE RECORDS SUMMARY | 2019-04-18 14:30 | XMS REPORT ---
Author Author Manan Terry Organization [facility] Address [address] [place], [place] [address] Care Team Providers Care Interior Design Program Chair Name Role Phone Margaux Terry PCP Unavailable Allergies and Adverse Reactions Name Reaction Notes Tylenol cranberries Plan of Treatment Planned Activity Comments Planned Date Planned Time Plan/Goal RAST 03/16/2016 12:00 AM Medications Active Name Start Date [...] HC BMI BSA BMI Percentile O2 Sat(%) 03/16/2016 2:08:00 PM 122 mmHg 60 mmHg [...] reaction, initial encounter Mar 16 2016 2:10PM Payers Insurance Name Company Name Plan Name Plan Number Policy Number Sin cy Group Number Start Date [facility] Med Occupational Medicine [id number] N/A [facility] [id number] N/A History of Encounters Visit Date Visit Type Provider 03/16/2016 Office visit Margaux Terry APRN 01/13/2016 Office visit Margaux Terry APRN 12/08/2014 Office visit Skyler Meyers MD 09/15/2014 Office visit Afua NEVILLE RN 08/06/2014 Office visit Afua NEVILLE RN 09/08/2013 Jia Warner MD 09/08/2013 Office visit Afua NEVILLE RN
--- OUTSIDE RECORDS SUMMARY | 2019-04-18 14:30 | XMS REPORT ---
Author Author Manan Crespo [facility] Address [address] [place], [place] [address] Care Team Providers Care Hose Stripper Name Role Phone Alexey Crespo PCP Unavailable [...] Iron deficiency anemia Jan 03 2017 9:05AM Payers Insurance Name Company Name Plan Name Plan Number Policy Number Sin cy Group Number Start Date [employer] [facility] [id number] N/A [facility] [id number] N/A [facility] Med Occupational Medicine [id number] N/A [id number] A History of Encounters Visit Date Visit Type Provider 12/25/2016 Surgery Alexey Crespo DO 12/19/2016 Office visit Alexey Crespo DO 12/06/2016 Office visit Margaux Terry MANAGER CLIENT SERVICE 07/10/2016 Office visit Keith Forbes APR N 03/16/2016 Office visit Margaux Terry MANAGER CLIENT SERVICE 01/13/2016 Office visit Margaux Terry MANAGER CLIENT SERVICE 12/08/2014 Office visit Skyler Meyers MD 09/15/2014 Office visit Afua NEVILLE RN 08/06/2014 Office visit Afua NEVILLE RN 09/08/2013 Hospital W Kaz Warner MD 09/08/2013 Office visit Afua NEVILLE RN
--- OUTSIDE RECORDS SUMMARY | 2019-04-18 14:30 | XMS REPORT | CCD ---
Author Author CARLOS SANCHES Organization Unknown Address [address] [facility] [address] [place] [address] Care Team Providers Care Licensing Representative Name Role Phone AL FARFAN, ROBBY Wei Attphys Allergies Allergy Code Allergy Type Reaction Status ACETAMINOPHEN 161 Drug allergy Ac tive Active Medications No Active Medications Problems Unknown or Not Available. Procedures Procedure Code Procedure Type Date Open treatment of metacarpal fracture, s arsalan, includes internal fixation, 70844 CPT 01/04/2016 HAND; 2VWS 09904431 SNOMED CT 01/04/2016 FLUOROSCOPY < [address] 01/03 Results Unknown or Not Available. Function Status [...] Date End Date Current some day smoker [id number] Vital Signs Vital Sign Value Unit Date/Time Recent/I nitial? Weight Measured 155 [lb_av] 01/03/2016 14:25 Initial VS Height 71 [in_i] 01/03/2016 14:25 Initi al VS BMI (Body Mass Index) 21.62 kg/m2 01/03/2016 14 :25 Initial VS BSA (Body Surface Area) 1.88 m2 01/03/2016 14:25 Initial VS Heart Rate 56 /min 01/04/2016 14:37 I nitial VS O2 % BldC Oximetry 99 % 01/04/2016 14:37 Initial VS BP Systolic 79 mm[Hg] 01/04/2016 14:38 Initial VS BP Diastolic 31 mm[Hg] 01/04/2016 14:38 Initial VS Respiratory Rate 15 /min 01/04/2016 14:40 Initial VS BP Systolic 105 mm[Hg] 01/04/2016 15:26 Most Recent VS BP Diastolic 64 mm[Hg] 01/04/2016 15:26 Most Recent VS Respiratory Rate 15 /min 01/04/2016 15:28 Most Recent VS Heart Rate 52 /min 01/04/2016 15:28 M ost Recent VS O2 % BldC Oximetry 98 % 01/04/2016 15:28 Most Recent VS Function Status Unknown or Not Available. Goals Unknown or Not Available. ASSESSMENTS Unknown or Not Available. Health Concerns Section Unknown or Not Available.
--- OUTSIDE RECORDS SUMMARY | 2019-04-18 14:30 | XMS REPORT | CCD ---
Author Author CARLOS LAI Organization Unknown Address [address] [facility] [address] [place], [place] [phone] Care Team Providers Care Curing Oven Attendant Name Role Phone THELMA GUTIÉRREZ MD Attphys THELMA GUTIÉRREZ MD Prisurg Vital Signs Unknown or Not Available. Allergies Allergy Code Allergy Type Reaction Status ACETAMINOPHEN 161 Drug allergy Ac tive Procedures Procedure Code Procedure Type Date CT ABD AND PELVIS W/CONTRAST 329575124 SNOMED CT 04/15/2015 ^CBC W/AUTO DIFF 4173272 SNOMED CT 6 CBC W/ AUTO DIFF (RFLX MAN DIFF IF IND) 0475175 SN OMED CT 04/15/2015 BASIC METABOLIC PANEL 695787347 SNOMED CT 03/29 ^UA WITH MICRO 359808257 SNOMED CT 04/15/2015 UA ROUTINE C&S IF IND 255060804 SNOMED CT 03/29 LOCM 300-349 MG/ML, PER ML 952390337 SNOMED CT 04/15/2015 History of Immunizations Immunization Code Date DTP 06/02/1997 OPV 06/02/1997 MMR 03 06/02/1997 Hep B, adolescent or pediatric 08 Hep B, adolescent or pediatric 08 Hep B, adolescent or pediatric 08 influenza, split (incl. purified surface antigen) 15 12/18/2007 Tdap 115 07/23/2007 Problems Unknown or Not Available. Results BASIC METABOLIC PANEL - Collect Date/Rachid e: 04/15/2015 01:40 Test Name Code Test Result Test Units Yoly t Ref Range GLUCOSE 2345-7 93 MG/DL L=70 H=1 00 SODIUM 2951-2 140 MEQ/L L=135 H=14 8 POTASSIUM 2823-3 3.4 MEQ/L L=3.5 H =5.3 CHLORIDE 2075-0 105 MEQ/L L=96 H= 110 CO2 2028-9 25 MEQ/L L=22 H=29 BUN 3094-0 16 MG/DL L=8 H=22 CREATININE 2160-0 1.1 MG/DL L=0.6 H=1.6 CALCIUM 25677-2 9.5 MG/DL L=8.2 H= 10.6 AGE 20 yrs GFR NonAA 84 GFR AA 102 eGFR >60 N/A eGFR AA* >60 N/A CBC W/ AUTO DIFF (RFLX MAN DIFF IF IND) - Collect Date/Time: 04/15/2015 01:40 Test Name Code Test Result Test Units Yoly t Ref Range WBC 09472-9 5.2 TH/CMM L=4.5 H=1 0.8 RBC 789-8 4.46 ML/CMM L=4.70 H=6. 10 HGB 718-7 13.5 G/DL L=14.0 H=18 .0 HCT 4544-3 40.4 % L=42.0 H=52 .0 MCV 91 FL L=81 H=99 MCH 30.3 PG L=27.0 H=33 .0 MCHC 33.4 G/DL L=31.0 H=36 .0 RDW SD 42 FL L=36 H=50 RDW CV 12.8 % L=0.0 H=14 .8 MPV 9.4 FL L=9.3 H=12 .5 PLT 777-3 236 TH/CMM L=130 H=44 0 NRBC# 0.00 TH/CMM L=0.00 H=0. 00 NRBC% 0.0 /100WBC L=0.0 H=2 .0 %NEUT 38.9 % %LYMP 44.8 % %MONO 13.4 % %EOS 2.3 % %BASO 0.6 % #NEUT 2.04 TH/CMM L=2.10 H=8. 20 #LYMP 2.35 TH/CMM L=0.90 H=5. 20 #MONO 0.70 TH/CMM L=0.16 H=1. 00 #EOS 0.12 TH/CMM L=0.00 H=0. 80 #BASO 0.03 TH/CMM L=0.00 H=0. 20 MANUAL DIFF NOT IND N/A UA ROUTINE C&S IF IND - Collect Date/Rachid e: 04/15/2015 01:00 Test Name Code Test Result Test Units Yoly t Ref Range COLOR YELLOW N/A NL: YELLOW APPEARANCE CLEAR N/A NL: CLEAR SPEC GRAV >=1.030 N/A NL: 1.002 - 1.022 pH 6.0 N/A NL: 5 - 9 PROTEIN NEGATIVE N/A NL: NEGATIVE mg/dl GLUCOSE NEGATIVE N/A NL: NEGATIVE mg/dl KETONE 15 N/A NL: NEGATIVE m g/dl BILIRUBIN NEGATIVE N/A NL: NEGATI VE BLOOD MODERATE N/A NL: NEGATIVE NITRITE NEGATIVE N/A NL: NEGATIVE LEUK SCREEN NEGATIVE N/A NL: NEGA TIVE MICRO INDICATED? SEE BELOW N/A WBC/HPF RARE N/A NL: NEGATIVE RBC/HPF 0-5 N/A NL: NEGATIVE CASTS/LPF NEGATIVE N/A NL: NEGAT RAUL CRYSTALS NEGATIVE N/A NL: NEGATI VE MUCOUS THRDS 2++ N/A NL: NEGA TIVE BACTERIA FEW N/A NL: NEGATIVE EPITH CELLS 1+ SQUAMOUS N/A NL: NEGATIVE TRICHOMONAS NEGATIVE N/A NL: NEG ATIVE YEAST NEGATIVE N/A NL: NEGATIVE CULT SET UP? NO N/A Active Medications Unknown or Not Available. Medications Administered During Visit Unknown or Not Available. Encounters Encounter Diagnosis Diagnosis Code Start Date Contusion of kidney 42058622 04/15/2015 Social History Smoking Status Code Start Date End Date Never smoker 683049511 Patient Decision Aids Unknown or Not Available. Discharge Instructions You were admitted to [facility] on 04/15/2015 00:07 with a principal diagnosis of Minor contusion of left kidney, initial encounter You had the following tests done: BASIC METABOLIC PANEL CBC W/ AUTO DIFF (RFLX MAN DIFF IF IND) UA ROUTINE C&S IF IND You were discharged from [facility] Should you have any questions prior to discharge, please contact a member of your healthcare team. If you have left the hospital and have any questions, please contact your primary care physician. Chief Complaint and Reason For Visit Chief Complaint Date of Onset KIDNEY PAIN URNARY PAIN Function Status Unknown or Not Available. Plan of Care Unknown or Not Available. Referral/Transition of Care Unknown or Not Available.
--- OUTSIDE RECORDS SUMMARY | 2019-04-18 14:30 | XMS REPORT | CCD ---
Author Author CARLOS CANSECO Organization Unknown Address [address] [facility] [address] [place] [address] Care Team Providers Care Flower Arranger Name Role Phone EDITH FARFAN, PIPER Kenney Attphys PIPER SHARMA MD Prisurruben Allergies Allergy Code Allergy Type Reaction Status ACETAMINOPHEN 161 Drug allergy Ac tive Active Medications Unknown or Not Available. Problems Unknown or Not Available. Procedures Procedure Code Procedure Type Date HAND;MINIMUM 3VWS 68886587 SNOMED CT 12/11/19 16 Results Unknown or Not Available. Function [...] Code Start Date End Date Never smoker 580074520 Vital Signs Unknown or Not Available. Function Status Unknown or Not Available. Goals Unknown or Not Available. ASSESSMENTS Unknown or Not Available. Health Concerns Section Unknown or Not Available.
--- OUTSIDE RECORDS SUMMARY | 2019-04-18 14:30 | XMS REPORT | CCD ---
Author Author CARLOS CANSECO Organization Unknown Address [address] [facility] [address] [place] [address] Care Team Providers Care Bottom Painter Name Role Phone THELMA GUTIÉRREZ MD Attphys THELMA GUTIÉRREZ MD Prisurg [phone] Allergies Allergy Code Allergy Type Reaction Status ACETAMINOPHEN 161 Drug allergy Ac tive Active Medications Unknown or Not Available. Problems Unknown or Not Available. Procedures Unknown or Not Available. Results Unknown or Not Available. Encounters Encounter Diagnosis Diagnosis Code Start Date Other superficial bite of left index finger, initial e ncounter [id number] 01/05/2016 Function Status Unknown or Not Available. History [...] Date End Date Current some day smoker [id number] Vital Signs Unknown or Not Available. Function Status Unknown or Not Available. Goals Unknown or Not Available. ASSESSMENTS Unknown or Not Available. Health Concerns Section Unknown or Not Available.
--- OUTSIDE RECORDS SUMMARY | 2019-04-18 14:30 | XMS REPORT ---
Discharge Summary 2.1 Created on: CARLOS JACKSON : 1995 Sex: Male Author Author CARLOS HAYWOOD Organization Unknown Address [address] [place], [place] [phone] Care Team Providers Care Mental Health Nurse Name Role Phone MIQUEL Stephens DO Attending CHELITA ALBERTS SOFTWARE CONFIGURATION ANALYST SOFTWARE CONFIGURATION ANALYST ODELL DUFFY TRAPPER ANIMAL [facility] Functional Status No Data Found Immunization Immunization Date Status Additional Notes Cod e Code System DTP 06/02/1997 Completed 01 CVX OPV 06/02/1997 Completed 02 CVX MMR 06/02/1997 Completed 03 CVX Hep B, adolescent or pediatric 07/22/1998 Completed 08 CVX Hep B, adolescent or pediatric 08/23/1998 Completed 08 CVX Hep B, adolescent or pediatric 02/15/1999 Completed 08 CVX influenza, split (incl. purified surface antigen) 11/27 Completed 15 CVX Tdap 07/23/2007 Completed 115 CVX Mental Status No Data Found Results No Data Found Social History Type Status Start Date End Date Code Co de System Smoking History Current some day smoker [id number] SNOMED-CT Smoking History Never smoker (Never Smoked) 255238389 SNOMED-CT Vital Signs Vital Sign Value Unit [place] Value Imp erial Unit Date/Time Recent/Initial? Code Code Syste m Body Mass Index 20.36 kg/m2 1 12:49 Inital 68520-7 LOINC Body Surface Area 1.82 m2 1 12:49 Inital 3140-1 LOINC Height 180.3400 cm 71.00 in 12:49 Inital 8302-2 LOINC Weight 66.2245 kg 146.00 lbs 12:49 Inital 03492-6 LOINC Assessment No Data Found Hospital Discharge Instructions Should you have any questions prior to discharge, please contact a member of your healthcare team. If you have left the hospital and have any questions, please contact your primary care physician. Reason For Referral No Data Found Hospital Course You were admitted to on 12/25/2016 07:29 with a principal diagnosis of Gastritis, unspecified, without bleeding You were discharged from on 12/25/2016 10:15 Medications No Data Found Procedures Procedure Name Date Status Code Code Sy stem Colonoscopy, flexible; with biopsy, single or multiple 12/25/2016 completed 81112 CPT-4 Esophagogastroduodenoscopy, flexible, tr ansoral; with biopsy, single or mu 12/25/2016 completed 35997 CPT-4 Implants No Data Found Problems No Data Found Allergies Allergy Substance Reaction Severity Start Date Concern Status Code Code System ACETAMINOPHEN Active 161 RxNorm Plan of Treatment No Data Found Encounters No Data Found Goals No Data Found Discharge Medications No Data Found Discharge Diagnosis Discharge Diagnosis Diagnosis Code Start Date Gastritis, unspecified, without bleeding K2970 12/25/2016 Health Concerns Section No Data Found
--- OUTSIDE RECORDS SUMMARY | 2019-04-18 14:30 | XMS REPORT | CCD ---
Author Author CARLOS HAYWOOD Organization Unknown Address [address] [place] [address] Care Team Providers Care Hand Button Splitter Name Role Phone JIHAN ER, MARKOS DO Attphys [place] ER, MARKOS DO Prisurg Allergies Allergy Code Allergy Type Reaction Status ACETAMINOPHEN 161 Drug allergy Ac tive Active Medications Unknown or Not Available. Problems Unknown or Not Available. Procedures Procedure Code Procedure Type Date ^CBC W/AUTO DIFF 6277398 SNOMED CT 7 COMPREHENSIVE METABOLIC PANEL 388196524 SNOMED CT 04/15/2016 CBC W/ AUTO DIFF (RFLX MAN DIFF IF IND) 0849143 SN OMED CT 04/15/2016 MONO TEST 79711346 SNOMED CT 04/15/2016 INFLUENZA A & B 182614439 SNOMED CT 04/15/2016 Results COMPREHENSIVE METABOLIC PANEL - Collect Date/Time: 04/15/2016 22:20 Test Name Code Test Result Test Units Yoly t Ref Range GLUCOSE 2345-7 96 MG/DL L=70 H=1 00 SODIUM 2951-2 139 MEQ/L L=135 H=14 8 POTASSIUM 2823-3 3.6 MEQ/L L=3.5 H =5.3 CHLORIDE 2075-0 105 MEQ/L L=96 H= 110 CO2 2028-9 25 MEQ/L L=22 H=29 BUN 3094-0 12 MG/DL L=8 H=22 CREATININE 2160-0 0.9 MG/DL L=0.6 H=1.6 SGOT/AST 1920-8 28 IU/L L=10 H= 40 SGPT/ALT 1742-6 25 IU/L L=8 H= 54 ALK PHOS 6768-6 68 IU/L L=35 H= 115 TOTAL PROTEIN 2885-2 8.1 G/DL L=5.5 H=8.5 ALBUMIN 1751-7 4.1 G/DL L=3.1 H=5 .4 TOTAL BILI 1975-2 0.4 MG/DL L=0.0 H=1.5 CALCIUM 87423-5 9.5 MG/DL L=8.2 H= 10.6 AGE 21 yrs GFR NonAA 105 GFR AA 127 eGFR >60 N/A eGFR AA* >60 N/A CBC W/ AUTO DIFF (RFLX MAN DIFF IF IND) - Collect Date/Time: 04/15/2016 22:20 Test Name Code Test Result Test Units Yoly t Ref Range WBC 78207-1 6.1 TH/CMM L=4.5 H=1 0.8 RBC 789-8 4.22 ML/CMM L=4.70 H=6. 10 HGB 718-7 12.8 G/DL L=14.0 H=18 .0 HCT 4544-3 38.3 % L=42.0 H=52 .0 MCV 91 FL L=81 H=99 MCH 30.3 PG L=27.0 H=33 .0 MCHC 33.4 G/DL L=31.0 H=36 .0 RDW SD 43 FL L=36 H=50 RDW CV 12.8 % L=0.0 H=14 .8 MPV 8.7 FL L=9.3 H=12 .5 PLT 777-3 285 TH/CMM L=130 H=44 0 NRBC# 0.00 TH/CMM L=0.00 H=0. 00 NRBC% 0.0 /100WBC L=0.0 H=2 .0 %NEUT 44.5 % %LYMP 42.2 % %MONO 11.6 % %EOS 1.0 % %BASO 0.5 % #NEUT 2.74 TH/CMM L=2.10 H=8. 20 #LYMP 2.59 TH/CMM L=0.90 H=5. 20 #MONO 0.71 TH/CMM L=0.16 H=1. 00 #EOS 0.06 TH/CMM L=0.00 H=0. 80 #BASO 0.03 TH/CMM L=0.00 H=0. 20 MANUAL DIFF NOT IND N/A MONO TEST - Collect Date/Time: 7 22:20 Test Name Code Test Result Test Units Yoly t Ref Range MONO TEST 54671-2 NEGATIVE N/A NL: NEGAT RAUL INFLUENZA A & B - Collect Date/Time: 21:43 Test Name Code Test Result Test Units Yoly t Ref Range INFLUENZA A & B 6437-8 NO INFLUENZA A OR B DETECTED N/A Function Status Unknown or Not Available. History of Immunizations Immunization Code Date DTP 06/02/1997 OPV 06/02/1997 MMR 06/02/1997 Hep B, adolescent or pediatric Hep B, adolescent or pediatric Hep B, adolescent or pediatric 08 influenza, split (incl. purified surface antigen) 15 12/18/2007 Tdap 115 07/23/2007 Plan of Treatment Unknown or Not Available. Social History Smoking Status Code Start Date End Date Current some day smoker [id number] Vital Signs Unknown or Not Available. Function Status Unknown or Not Available. Goals Unknown or Not Available. ASSESSMENTS Unknown or Not Available. Health Concerns Section Unknown or Not Available.
--- OUTSIDE RECORDS SUMMARY | 2019-04-18 14:30 | XMS REPORT | CCD ---
Author Author CARLOS JANSEN Organization Unknown Address [address] [facility] [address] [place], [place] [address] Care Team Providers Care Insulation Sprayer Name Role Phone HANDSHY ER, LASHAY FARFAN Attphys HANDSHY ER, LASHAY FARFAN Prisurg Vital Signs Unknown. Allergies Allergy Code Allergy Type Reaction Status ACETAMINOPHEN 0 Drug allergy (disorder) Active Procedures Procedure Code Procedure Type Date CX CHEST [address] 03/17/2013 INFLUENZA A & B 824654793 SNOMED CT 03/17/2013 History of Immunizations Unknown. Problems Unknown. Results INFLUENZA A & B Test Name Code Test Result Test Units Yloy t Date/Time INFLUENZA A & B 6437-8 INFLUENZA A POSITIVE N/A 03/17/2013 20:42 Medications Unknown. Medications Administered Unknown. Encounters Unknown. Social History Smoking Status Code Start Date End Date Never smoker 312836215 Patient Decision Aids Unknown. Instructions You were admitted to [facility] on 03/17/2013. You had the following tests done: INFLUENZA A & B You were discharged from [facility] on 03/17/2013. Should you have any questions prior to discharge, please contact a member of your healthcare team. If you have left the hospital and have any questions, please contact your primary care physician. Chief Complaint and Reason For Visit Chief Complaint Date of Onset CHEST PAIN Function Status Unknown. Plan of Care Unknown. Referral/Transition of Care Unknown.
--- OUTSIDE RECORDS SUMMARY | 2019-04-18 14:30 | XMS REPORT ---
Author Author Manan Terry [facility] Address [address] [place], [place] [address] Care Team Providers Care Dumb Waiter Operator Name Role Phone Margaux Terry PCP [...] Other obsessive-compulsive disorders Mar 27 2017 11:30AM Payers Insurance Name Company Name Plan Name Plan Number Policy Number Sin cy Group Number Start Date [employer] [id number] N/A [facility] [id number] N/A [facility] [address] Med Occupational Medicine [id number] N/A BCBS [id number] N/ A History of Encounters Visit Date Visit Type Provider 03/27/2017 Office visit Margaux Terry IT SENIOR SOFTWARE ENGINEER JAVA 03/01/2017 Office visit Margaux Terry IT SENIOR SOFTWARE ENGINEER JAVA 12/25/2016 Surgery Alexey Crespo DO 12/19/2016 Office visit Alexey Crespo DO 12/06/2016 Office visit Margaux Terry IT SENIOR SOFTWARE ENGINEER JAVA 10/27/2016 Hospital Cam Warner MD 07/10/2016 Office visit Keith Forbes APR N 03/16/2016 Office visit Margaux Terry IT SENIOR SOFTWARE ENGINEER JAVA 01/13/2016 Office visit Margaux Terry APRN 12/08/2014 Office visit Skyler Meyers MD 09/15/2014 Office visit Afua NEVILLE RN 08/06/2014 Office visit Afua NEVILLE RN 09/08/2013 [facility] Cam Warner MD 09/08/2013 Office visit Afua NEVILLE RN
--- OUTSIDE RECORDS SUMMARY | 2019-04-18 14:31 | XMS REPORT | Continuity of Care Document ---
Author Organization Unknown Address Unknown Phone Unavailable Allergies Active Description Code Type Severity Reaction Onset Reported/Identified Relationship to Patient Clinical Status Yes acetaminophen [id number] Kuldip g Allergy Unknown N/A 04/08/2019 Medications There is no data. Problems There is no data. Procedures There is no data. Results Test Result Range Complete urinalysis with reflex to cultu re - 04/08/19 17:25 Urine color determination YELLOW NRG Urine clarity determination CLEAR NR G Urine pH measurement by test strip 8.5 5-9 Specific gravity of urine by test strip 1.020 1.016-1.022 Urine protein assay by test strip, semi-quantitative NEGATIVE NEGATIVE Urine glucose detection by automated test strip NE GATIVE NEGATIVE Erythrocytes detection in urine sediment by light micr oscopy NEGATIVE NEGATIVE Urine ketones detection by automated test strip NE GATIVE NEGATIVE Urine nitrite detection by test strip NEGATIVE NEGATIVE Urine total bilirubin detection by test strip NEGA TIVE NEGATIVE Urine urobilinogen measurement by automated test strip (mass/volume) 0.2 mg/dL < = 1.0 Urine leukocyte esterase detection by dipstick NEG ATIVE NEGATIVE Automated urine sediment erythrocyte cou nt by microscopy (number/high power field) RARE NRG Automated urine sediment leukocyte count by microscopy (number/high power field) RARE NRG Bacteria detection in urine sediment by light microsco py NEGATIVE NRG Crystals detection in urine sediment by light microsco py NONE NRG Casts detection in urine sediment by light microscopy NONE NRG Mucus detection in urine sediment by light microscopy NEGATIVE NRG Complete urinalysis with reflex to culture NO NRG Chlamydia DNA amp probe, urine - 0 17:25 Chlamydia DNA amp probe, urine Not Detected Not Detected Urine Neisseria gonorrhoeae DNA assay - 04/08/19 17:25 Gonorrhea amp DNA-urine Not Detected No t Detected Complete blood count (CBC) with automate d white blood cell (WBC) differential - 04/08/19 17:35 Blood leukocytes automated count (number/volume) 6.7 10*3/uL 4.3-11.0 Blood erythrocytes automated count (number/volume) 4.96 10*6/uL 4.35-5.85 Venous blood hemoglobin measurement (mass/volume) 14.7 g/dL 13.3-17.7 Blood hematocrit (volume fraction) 45 % 40-54 Automated erythrocyte mean corpuscular volume 91 [ foz_us] 80-99 Automated erythrocyte mean corpuscular h emoglobin (mass per erythrocyte) 30 pg 25-34 Automated erythrocyte mean corpuscular h emoglobin concentration measurement (mass/volume) 33 g/dL 32-36 Automated erythrocyte distribution width ratio 13. 2 % 10.0- 14.5 Automated blood platelet count (count/volume) 314 10*3/uL 130-400 Automated blood platelet mean volume measurement 9.4 [foz_us] 7.4-10.4 Automated blood neutrophils/100 leukocytes 73 % 42-75 Automated blood lymphocytes/100 leukocytes 18 % 12-44 Blood monocytes/100 leukocytes 8 % 0-12 Automated blood eosinophils/100 leukocytes 1 % 0-10 Automated blood basophils/100 leukocytes 0 % 0-10 Blood neutrophils automated count (number/volume) 4.9 10*3 1.8-7.8 Blood lymphocytes automated count (number/volume) 1.2 10*3 1.0-4.0 Blood monocytes automated count (number/volume) 0. 5 10*3 0.0-1.0 Automated eosinophil count 0.0 10*3/uL 0 .0-0.3 Automated blood basophil count (count/volume) 0.0 10*3/uL 0.0-0.1 Comprehensive metabolic panel - 04/08/19 17:35 Serum or plasma sodium measurement (moles/volume) 137 mmol/L 135-145 Serum or plasma potassium measurement (moles/volume) 3.6 mmol/L 3.6-5.0 Serum or plasma chloride measurement (moles/volume) 102 mmol/L 98-107 Carbon dioxide 27 mmol/L 21-32 Serum or plasma anion gap determination (moles/volume) 8 mmol/L 5-14 Serum or plasma urea nitrogen measurement (mass/volume ) 16 mg/dL 7-18 Serum or plasma creatinine measurement (mass/volume) 1.03 mg/dL 0.60-1.30 Serum or plasma urea nitrogen/creatinine mass ratio 16 NRG Serum or plasma creatinine measurement w ith calculation of estimated glomerular filtration rate > NRG Serum or plasma glucose measurement (mass/volume) 100 mg/dL 70-105 Serum or plasma calcium measurement (mass/volume) 9.9 mg/dL 8.5-10.1 Serum or plasma total bilirubin measurement (mass/volu me) 0.8 mg/dL 0.1-1.0 Serum or plasma alkaline phosphatase cele surement (enzymatic activity/volume) 56 U/L 40-136 Serum or plasma aspartate aminotransfera se measurement (enzymatic activity/volume) 23 U/L 5-34 Serum or plasma alanine aminotransferase measurement (enzymatic activity/volume) 17 U/L 0-55 Serum or plasma protein measurement (mass/volume) 8.5 g/dL 6.4-8.2 Serum or plasma albumin measurement (mass/volume) 4.7 g/dL 3.2-4.5 Serum or plasma C reactive protein measu rement (mass/volume) - 04/08/19 17:35 Serum or plasma C reactive protein measurement (mass/v olume) 0.03 mg/dL 0.00-0.50 Encounters ACCT No. Visit Date/Time Discharge Status Pt. Type Provider Facility Loc./Unit Complaint [id number] 02/21/2019 12:43:33 02/21/2019 23:59: 59 CLS Outpatient Clari Horvath [id number] 12/27/2018 18:45:30 12/27/2018 23:59: 59 CLS Outpatient Anastacia Aden [id number] 08/26/2018 11:37:16 08/26/2018 23:59: 59 CLS Outpatient PIPER WYMAN [id number] 05/25/2018 09:56:34 05/25/2018 23:59: 59 CLS Outpatient Anastacia Aden [id number] 02/11/2018 16:13:38 02/11/2018 23:59: 59 CLS Outpatient Margaux Terry [id number] 03/27/2017 12:23:58 03/27/2017 23:59: 59 CLS Outpatient Margaux Terry [id number] 03/01/2017 11:53:07 03/01/2017 23:59: 59 CLS Outpatient Margaux Terry [id number] 01/04/2017 10:21:02 01/04/2017 23:59: 59 CLS Outpatient Cam Warner [id number] 12/26/2016 15:03:45 12/26/2016 23:59: 59 CLS Outpatient Alexey Crespo [id number] 12/19/2016 10:33:56 12/19/2016 23:59: 59 CLS Outpatient Alexey Crespo [id number] 12/06/2016 10:20:06 12/06/2016 23:59: 59 CLS Outpatient Margaux Terry [id number] 07/10/2016 17:36:53 07/10/2016 23:59: 59 CLS Outpatient AndreiKeith [id number] 03/20/2016 16:34:07 03/20/2016 23:59: 59 CLS Outpatient Margaux Terry [id number] 01/13/2016 10:07:05 01/13/2016 23:59: 59 CLS Outpatient Margaux Terry [id number] 12/08/2014 15:20:12 12/08/2014 23:59: 59 CLS Outpatient Skyler Meyers [id number] 10/05/2014 22:20:07 10/05/2014 23:59: 59 CLS Outpatient Afua Sabillon [id number] 10/05/2014 21:53:31 10/05/2014 23:59: 59 CLS Outpatient Afua Sabillon [id number] 09/21/2013 17:24:59 09/21/2013 23:59: 59 CLS Outpatient Cam Warner [id number] 09/08/2013 16:50:04 09/08/2013 23:59: 59 CLS Outpatient Afua Sabillon [id number] 04/08/2019 16:50:00 020 18:53:00 DIS Emergency HELEN FARFAN, WILIAM Kenney [facility] ER PAIN IN ABD
== END 2019-04-08 18:53 | disposition short-term general hospital (02) ==
LOC: ER 16:50
DX: N50.811 Right testicular pain (principal); F17.210 Nicotine dependence, cigarettes, uncomplicated; Z88.6 Allergy status to analgesic agent
CPT/HCPCS: 36415; 80053; 81000; 85025; 86141; 87491; 87591; 96374; 96375

== ENCOUNTER 2022-11-08 11:09 | Emergency (ER) | payer SELFPAY ==
[~2022-11-08] VITALS: Ht 180.3 cm; Wt 77.1 kg
[2022-11-08 11:26] VITALS: BP 123/79
--- NOTE | 2022-11-08 11:48 | ED Head Injury ---
General Chief Complaint: Head/Cervical Problems Stated Complaint: MIGRAINE | NAUSEA Nursing Triage Note: PT AMBULATES TO TRIAGE W/CC HEADAHCE, LIGHT SENSITIVITY, NAUSEA, VOMITING. PT REPORTS ON 11/06/22 HE FELL STRIKING THE RIGHT LATERAL SIDE OF HIS HEAD ON A WOOD PORCH. PT REPORTS HE DID NOT LOSE CONSCIOUSNESS, BUT FELT "DAZED" AFTER INJURY. PT REPORTS LATER THAT NIGHT HE BEGAN TO EXPERIENCE GRADUAL ONSET OF HEADACHE THAT HAS CONTINUED TO PROGRESS IN SEVERITY, WHICH HE NOW RATES 8/10. PT REPORTS ON 11/07/22 BETWEEN [phone] HE EXPERIENCE MULTIPLE EPISODES OF NAUSEA AND VOMITING. 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 PT REQUESTED NO LIGHT PUPILLARY RESPONSE TO BE CHECKED DURING TRIAGE D/T WORSENING OF SYMPTOMS AFTER TESTING AT [facility]. Source: patient Exam Limitations: no limitations (MALLORIE YOO) History of Present Illness Date Seen by Provider: Nov 08, 2022 Time Seen by Provider: 11:44 Initial Comments Patient is a 27-year-old male who presents ED with right-sided headache. This started after he struck the right side of his head on the wooden porch 2 days ago. Patient states this was a mechanical fall. Landed on his right side. He had no loss of consciousness. He felt dazed after. Start developing a right- sided head pain. Head pain was mild after the fall. This head pain started gradually increasing and now rates 8 out of 10. States he started vomiting last night throughout the the scout leaser hours. He attempted to take ibuprofen but vomited last night. Reports sensitivity to noise as well. He reports nausea at this time. Denies any swelling or bruising to the right side of his head. Patient reports bilateral neck tightness. Denies of any distal numbness and tingling. He did land on the right side but no pain at this time. Denies of any visual loss, unilateral muscle weakness or visual loss, chest pain, cough, shortness of breath, abdominal pain, dysuria, hematuria, middle lower back pain. History of migraines when he was a kid but has not had any head pain like this since. 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 He does have blurry vision in left eye but no worsening vision changes or pain at this time. Denies of any pain with movement (MALLORIE YOO) Allergies and Home Medications Allergies Coded Allergies: acetaminophen (Verified Allergy, Unknown, 04/08/19) Patient Home Medication List Home Medication List Reviewed: Yes (MALLORIE YOO) Ondansetron (Ondansetron Odt) 4 Mg Tab.rapdis, 4 MG SL Q4H PRN for NAUSEA /VOMITING Prescribed by: AMARA CONDE on 11/08/22 1331 Review of Systems Review of Systems Constitutional: No chills, No diaphoresis, No malaise, No weakness Eyes: Blurred Vision; Denies Drainage, Denies Decreased Acuity Ears, Nose, Mouth, Throat: denies ear pain, denies ear discharge Respiratory: No cough, No dyspnea on exertion Cardiovascular: No chest pain Gastrointestinal: No abdominal pain, No constipation; nausea, vomiting Genitourinary: No decreased output, No discharge Musculoskeletal: No back pain, No joint pain, No joint swelling; muscle pain Skin: No change in color, No change in hair/nails (MALLORIE YOO) All Other Systems Reviewed Negative Unless Noted: Yes (MALLORIE YOO) Physical Exam Vital Signs Vital Signs - First Documented 11/08/22 11:26 Temp 36.4 Pulse 81 Resp 16 B/P (MAP) 123/79 (94) Pulse Ox 99 O2 Delivery Room Air (MARY MCKINLEY MD) Vital Signs Capillary Refill : Less Than 3 Seconds (MALLORIE YOO) Height, Weight, BMI Height: '" Weight: lbs. oz. kg; 23.00 BMI Method: General Appearance: WD/WN, no apparent distress HEENT: PERRL/EOMI, normal ENT inspection, TMs normal, pharynx normal Neck: other (Bilateral cervical paraspinal muscle tenderness. No cervical midline tenderness. Normal active range of motion) Cardiovascular: regular rate, rhythm, no edema, no gallop, no JVD Respiratory: chest non-tender, lungs clear, normal breath sounds, no respiratory distress, no accessory muscle use Gastrointestinal: normal bowel sounds, non tender, soft, no organomegaly Back: normal inspection, no CVA tenderness, no vertebral tenderness Extremities: normal range of motion, non-tender, normal inspection, no pedal edema Crainal Nerves: normal hearing, normal speech, PERRL Coordination/Gait: normal finger to nose, normal gait Motor/Sensory: no motor deficit, no sensory deficit, no pronator drift Skin: normal color, warm/dry (MALLORIE YOO) [place] Coma Score Best Eye Response: (4) Open Spontaneously Best Verbal Response: (5) Oriented Best Motor Response: (6) Obeys Commands Valery Total: 15 (MALLORIE YOO) Progress/Results/Core Measures Results/Orders Lab Results Laboratory Tests Test 11/08/22 11:45 Range/Units White Blood Count 3.7 L 4.3-11.0 10^3/uL Red Blood Count 4.92 4.30-5.52 10^6/uL Hemoglobin 14.6 13.3-17.7 g/dL Hematocrit 46 40-54 % Mean Corpuscular Volume 93 80-99 fL Mean Corpuscular Hemoglobin 30 25-34 pg Mean Corpuscular Hemoglobin Concent 32 32-36 g/dL Red Cell Distribution Width 13.2 10.0-14.5 % Platelet Count 296 130-400 10^3/uL Mean Platelet Volume 9.0 9.0-12.2 fL Immature Granulocyte % (Auto) 0 % Neutrophils (%) (Auto) 32 L 42-75 % Lymphocytes (%) (Auto) 50 H 12-44 % Monocytes (%) (Auto) 17 H 0-12 % Eosinophils (%) (Auto) 1 0-10 % Basophils (%) (Auto) 1 0-10 % Neutrophils # (Auto) 1.2 L 1.8-7.8 10^3/uL Lymphocytes # (Auto) 1.8 1.0-4.0 10^3/uL Monocytes # (Auto) 0.6 0.0-1.0 10^3/uL Eosinophils # (Auto) 0.0 0.0-0.3 10^3/uL Basophils # (Auto) 0.0 0.0-0.1 10^3/uL Immature Granulocyte # (Auto) 0.0 0.0-0.1 10^3/uL Erythrocyte Sedimentation Rate 6 0-15 MM/HR Sodium Level 138 135-145 MMOL/L Potassium Level 4.5 3.6-5.0 MMOL/L Chloride Level 104 98-107 MMOL/L Carbon Dioxide Level 25 21-32 MMOL/L Anion Gap 9 5-14 MMOL/L Blood Urea Nitrogen 12 7-18 MG/DL Creatinine 0.97 0.60-1.30 MG/DL Estimat Glomerular Filtration Rate 108 BUN/Creatinine Ratio 12 Glucose Level 107 H 70-105 MG/DL Calcium Level 9.6 8.5-10.1 MG/DL Corrected Calcium 9.3 8.5-10.1 MG/DL Total Bilirubin 0.8 0.1-1.0 MG/DL Aspartate Amino Transf (AST/SGOT) 42 H 5-34 U/L Alanine Aminotransferase (ALT/SGPT) 37 0-55 U/L Alkaline Phosphatase 61 40-136 U/L C-Reactive Protein High Sensitivity 0.15 0.00-0.50 MG/DL Total Protein 8.4 H 6.4-8.2 GM/DL Albumin 4.4 3.2-4.5 GM/DL (MARY MCKINLEY MD) Blood Pressure Mean: 94 Departure Communication (PCP) Reviewed previous ER visits, H&P, lab testing. Injury to the right side of his head Sunday after a fall. No loss of conscious or on blood thinners. Complaining of head pain vomiting sensitivity to light and noise. Patient does not appear in acute distress. No focal neural deficits. Does have chronic blurry vision left eye secondary to a partial retinal injury. Denies of any new changes in vision. Patient without any acute neurological red flag findings. Reports some neck tightness. Vomiting with ibuprofen. No evidence of basilar skull fracture. No bilateral TMs bleeding, bruising behind the ear or raccoon eyes. CT scan of the head and cervical neck was ordered secondary to mechanism of injury and head pain. History of migraines when he was younger. Migraine cocktail was ordered. CT scan the head and cervical neck was negative for acute abnormality. Patient received a liter of fluid, Compazine and Benadryl with a dose of fentanyl. After results of his CT scan showing no intracranial bleed patient did receive a dose of Toradol as he still had some mild head pain. Symptoms continue improved. Patient requesting to be discharged. Concern for concussion. Recommend resting at home. Avoid any strenuous activities, working until symptoms improved. I do suggest follow-up your PCP in 2 to 3 days for reevaluation. Discussed with patient potential length of symptoms. Will jessica grossman with Alan. Recommend staying hydrated. Alternate Tylenol and ibuprofen at home. If any worsening symptoms such as loss of consciousness, neuro changes, worsening head pain, visual loss to return back to ED. (MALLORIE YOO) Impression Primary Impression: Concussion Additional Impression: Headache Disposition: HOME, SELF-CARE Condition: Stable Departure-Patient Inst. Decision time for Depature: 13:24 (MALLORIE YOO) Referrals: CHARLES TINOCO MD (PCP/Family) Primary Care Physician Patient Instructions: Concussion, Adult ED Add. Discharge Instructions: Recommend rest at home throughout the duration of symptoms. Zofran for nausea. May take ibuprofen or naproxen. If no improvement may consider Excedrin Migraine. Recommend rest at home. Avoid bright lights extraneous activity. If any worsening symptoms return back to ED. follow-up with your PCP in 2 to 3 days for reevaluation. No sports until symptoms improved and cleared by your primary All discharge instructions reviewed with patient and/or family. Voiced understanding. Scripts Ondansetron (Ondansetron Odt) 4 Mg Tab.rapdis 4 MG SL Q4H PRN for NAUSEA/VOMITING, #8 TAB Prov: MALLORIE YOO 11/08/22 ATTENDING PHYSICIAN NOTE: I was physically present as attending physician in the emergency department during the care of this patient, but I was not directly involved in the decision making or delivery of care for this patient. (MARY MCKINLEY MD) MALLORIE YOO Nov 08, 2022 11:48 MARY MCKINLEY MD Nov 09, 2022 09:33
[2022-11-08] MEDS ORDERED: fentaNYL INJECTION 100 MCG/2 ML VIAL IVP STA (11:49)
[2022-11-08] MEDS ORDERED: NS IV 1000 ML 1,000 ML IV STA (11:49)
[2022-11-08] MEDS ORDERED: PROCHLORPERAZINE INJ 10 MG/2ML VIAL IV ONE (12:00)
[2022-11-08] MEDS ORDERED: diphenhydrAMINE INJ 50 MG/ML VIAL IVP ONE (12:00)
[2022-11-08 12:02] LABS: ALBUMIN 4.4 GM/DL (3.2-4.5); BASOPHILS % (AUTO) 1 % (0-10); EOSINOPHILS % (AUTO) 1 % (0-10); HEMATOCRIT 46 % (40-54); HEMOGLOBIN 14.6 g/dL (13.3-17.7); LYMPHOCYTES # (AUTO) 1.8 10^3/uL (1.0-4.0); LYMPHOCYTES % (AUTO) 50 % (12-44); MEAN CORPUSCULAR HEMOGLOBIN 30 pg (25-34); MEAN CORPUSCULAR HGB CONC 32 g/dL (32-36); MEAN CORPUSCULAR VOLUME 93 fL (80-99); MONOCYTES # (AUTO) 0.6 10^3/uL (0.0-1.0); MONOCYTES % (AUTO) 17 % (0-12); NEUTROPHILS # (AUTO) 1.2 10^3/uL (1.8-7.8); NEUTROPHILS % (AUTO) 32 % (42-75); PLATELET COUNT 296 10^3/uL (130-400); POTASSIUM 4.5 MMOL/L (3.6-5.0); WHITE BLOOD COUNT 3.7 10^3/uL (4.3-11.0)
[2022-11-08 12:03] LABS: CALCIUM 9.6 MG/DL (8.5-10.1)
[2022-11-08 12:04] LABS: TOTAL PROTEIN 8.4 GM/DL (6.4-8.2)
[2022-11-08 12:06] LABS: BILIRUBIN,TOTAL 0.8 MG/DL (0.1-1.0)
[2022-11-08 12:08] LABS: CREATININE SERUM 0.97 MG/DL (0.60-1.30)
--- NOTE | 2022-11-08 12:20 | Diagnostic Imaging Report ---
Clinical indications: Patient is status post fall in rain x2 days ago. Patient with pain right side of the body, and patient with neck stiffness and right-sided head pain worse every day. Exam: Head CT without IV contrast with sagittal and coronal reformations. Axial CT scan of the cervical spine with sagittal and coronal reformations. Auto Exposure Controls were utilized during the CT exam to meet ALARA standards for radiation dose reduction. Comparison: None. Findings: Head CT: There is no evidence of acute cerebral infarct, intracranial hemorrhage, or gross mass effect. The brain parenchymal volume appears appropriate for patient's age. There is normal byrne-white matter distinction. There is no significant midline shift or herniation. There is no evidence of hydrocephalus. The basal cisterns are unremarkable. The skull, extracranial soft tissue, and orbits are unremarkable. The paranasal sinuses are unremarkable. Temporal bones show no significant abnormality. Cervical spine: There is no acute cervical spine fracture or dislocation. There are small anterior spurs at the C5-C6 level. There is no significant bony central canal or neural foramen narrowing. There is no significant neck soft tissue abnormality. Impression: 1: There is no evidence of acute intracranial process. There is no skull fracture. 2: There is no acute cervical spine fracture or dislocation. Dictated by: Dictated on workstation # [id number]
[2022-11-08] MEDS ORDERED: KETOROLAC INJ 30 MG/ML VIAL IVP ONE (12:30)
[2022-11-08 12:53] LABS: ERYTHROCYTE SEDIMENTATION RATE 6 MM/HR (0-15)
[2022-11-08] MEDS ORDERED: ONDA4TAB11 SL ×2 (13:25→13:31)
== END 2022-11-08 13:28 | disposition home or self-care (01) ==
LOC: EDUNIT# 11:09 → ER 11:12
DX: S06.0X0A Concussion without loss of consciousness, initial encounter (principal); M54.2 Cervicalgia; R40.2362 Coma scale, best motor response, obeys commands, at arrival to emergency department; R40.2142 Coma scale, eyes open, spontaneous, at arrival to emergency department; R40.2252 Coma scale, best verbal response, oriented, at arrival to emergency department; Z86.69 Personal history of other diseases of the nervous system and sense organs; Z88.6 Allergy status to analgesic agent; W18.30XA Fall on same level, unspecified, initial encounter; W22.8XXA Striking against or struck by other objects, initial encounter
CPT/HCPCS: 36415; 70450; 72125; 80053; 85025; 85652; 86141